=== PATIENT | female | born 1960 | race Caucasian/White ===

== ENCOUNTER 2020-10-14 11:03 | Outpatient (REF) | payer OTHER, MEDICAID, SELFPAY ==
[2020-10-14 14:24] LABS: Basophils Absolute Auto 0.1 X10*3/uL (0.0-0.2); Basophils Percent Auto 1.1 % (0-2); Lymphocytes Absolute Auto 2.9 X10*3/uL (1.2-4.9); MANUAL DIFF FLAG SCAN; Red Cell Distribution Width 13.4 % (11.0-16.0); SCAN SMEAR FLAG 1
[2020-10-14 14:26] LABS: Eosinophils Absolute Auto 0.4 X10*3/uL (0.0-0.4); Eosinophils Percent Auto 4.3 % (0-4); Hematocrit 47.9 % (37-47); Hemoglobin 15.5 g/dl (12.0-16.0); Imm Gran Abs Auto 0.01 X10*3/uL (0.00-0.03); Imm Gran Pct Auto 0.1 % (0.0-0.4); Lymphocytes Percent Auto 35.5 % (20-40); Mean Corpuscular HGB Conc 32.4 g/dl (31.0-35.0); Mean Corpuscular Hemoglobin 29.5 pg (27.0-33.0); Mean Corpuscular Volume 91.2 fL (80-98); Monocytes Absolute Auto 0.7 X10*3/uL (0.1-1.2); Monocytes Percent Auto 8.3 % (2-11); Neutrophils Absolute Auto 4.2 X10*3/uL (2.0-8.3); Neutrophils Percent Auto 50.7 % (45-73); Platelet Count 179 X10*3/uL (160-400); Red Blood Count 5.25 X10*6/uL (4.20-5.50); White Blood Count 8.2 X10*3/uL (4.8-10.8)
[2020-10-14 14:28] LABS: Alanine Aminotransferase 33 U/L (0-31); Anion Gap 14 (12-20); Aspartate Amino Transferase 29 U/L (5-31); Blood Urea Nitrogen 20 mg/dL (9-16); Calcium 9.5 mg/dL (8.4-10.2); Carbon Dioxide 28 mmol/L (22-29); Chloride 106 mmol/L (96-108); Cholesterol 181 mg/dL; Estimated Glomerular Filt Rate > 60; Glucose Fasting 91 mg/dL (60-99); HDL Cholesterol 43 mg/dL; LDL Cholesterol Calculated 103 mg/dl; Sodium 144 mmol/L (135-145); Triglycerides 179 mg/dL
[2020-10-14 14:34] LABS: PLT ABN DIST 1
[2020-10-14 14:51] LABS: TSH reflex Free T4 0.56 uIU/mL (0.32-4.0); Vitamin D 25-OH Total 42.6 ng/mL (>30)
[2020-10-14 15:02] LABS: SLIDE REVIEW VERIFIED
== END 2020-10-14 11:04 | disposition home or self-care (01) ==
LOC: HO.HMGCLDS 11:03
PROVIDERS: PCP Internal Medicine; Visit Provider Internal Medicine
DX: Z00.01 Encounter for general adult medical examination with abnormal findings (principal); E78.1 Pure hyperglyceridemia; I10 Essential (primary) hypertension; R73.01 Impaired fasting glucose; Z78.0 Asymptomatic menopausal state
CPT/HCPCS: 36415; 80048; 80061; 82306; 84443; 84450; 84460; 85025

== ENCOUNTER 2021-05-16 06:38 | Outpatient (REF) | payer OTHER, MEDICAID, SELFPAY ==
[2021-05-16 12:02] LABS: Estimated Average Glucose 100 mg/dL; Hemoglobin A1c % 5.1 %
[2021-05-16 12:10] LABS: Alanine Aminotransferase 22 U/L (0-31); Aspartate Amino Transferase 25 U/L (5-31); Cholesterol 195 mg/dL; Glucose Fasting 90 mg/dL (60-99); HDL Cholesterol 39 mg/dL; LDL Cholesterol Calculated 125 mg/dl; Triglycerides 157 mg/dL
[2021-05-16 12:24] LABS: Vitamin D 25-OH Total 44.3 ng/mL (>30)
== END 2021-05-16 06:39 | disposition home or self-care (01) ==
LOC: HO.HMGCLDS 06:38
PROVIDERS: PCP Internal Medicine; Visit Provider Internal Medicine
DX: E87.1 Hypo-osmolality and hyponatremia (principal); R73.01 Impaired fasting glucose; Z78.0 Asymptomatic menopausal state
CPT/HCPCS: 36415; 80061; 82306; 82947; 83036; 84450; 84460

== ENCOUNTER 2021-11-05 13:51 | Outpatient (REF) | payer OTHER, MEDICAID, SELFPAY ==
[2021-11-05 16:54] LABS: Alanine Aminotransferase 25 U/L (0-31); Anion Gap 13 (12-20); Aspartate Amino Transferase 28 U/L (5-31); Blood Urea Nitrogen 16 mg/dL (9-16); Carbon Dioxide 25 mmol/L (22-29); Chloride 105 mmol/L (96-108); Cholesterol 200 mg/dL; Estimated Glomerular Filt Rate 52; Glucose Fasting 92 mg/dL (60-99); HDL Cholesterol 43 mg/dL; LDL Cholesterol Calculated 131 mg/dl; Sodium 139 mmol/L (135-145); Triglycerides 131 mg/dL
[2021-11-05 17:14] LABS: Vitamin D 25-OH Total 39.2 ng/mL (>30)
== END 2021-11-05 13:52 | disposition home or self-care (01) ==
LOC: HO.HMGCLDS 13:51
PROVIDERS: PCP Internal Medicine; Visit Provider Internal Medicine
DX: Z00.01 Encounter for general adult medical examination with abnormal findings (principal); E78.1 Pure hyperglyceridemia; F41.1 Generalized anxiety disorder; I10 Essential (primary) hypertension; J45.20 Mild intermittent asthma, uncomplicated; N95.1 Menopausal and female climacteric states
CPT/HCPCS: 36415; 80048; 80061; 82306; 84450; 84460

== ENCOUNTER 2022-04-30 12:34 | Outpatient (REF) | payer OTHER, MEDICAID, SELFPAY ==
[2022-04-30 13:02] LABS: Binax Internal Control QC Valid; Binax Now Covid-19 Ag Negative (Negative)
== END 2022-04-30 12:35 | disposition home or self-care (01) ==
LOC: HO.HMGCLDS 12:34
PROVIDERS: PCP Internal Medicine
DX: Z20.822 Contact with and (suspected) exposure to COVID-19 (principal); J06.9 Acute upper respiratory infection, unspecified
CPT/HCPCS: 87811; C9803

== ENCOUNTER 2022-11-11 13:47 | Outpatient (AMB) | payer OTHER, MEDICAID, SELFPAY ==
--- NOTE | 2022-11-11 14:06 | A.OFFPC_ITS ---
<Statement entered by Darlene Roca MD - 10/17/24 15:15> This note has been administratively?closed. Vital Signs 11/11/22 14:14 Height 5 ft 6 in Weight 161 lb BMI 26.0 BP 152/90 H Blood Pressure Location Rt brachial Position Sitting Pulse 77 Pulse Source Pulse Oximeter Pulse Oximetry (%) 97 Oxygen Delivery Method Room Air Intake Visit Reasons: PE Intake Note: Pt is here today for her PE Allergies barium sulfate Adverse Reaction (Unknown, Verified 11/11/22 14:46) nightmares Medication List - Last Reconciled 11/11/22 by Darlene Roca MD albuterol sulfate 90 mcg/actuation 2 puffs PO Q4H PRN amlodipine 5 mg PO DAILY 30 days tccvezp-xuknndrpinyij-rspllwoz 250-250-65 mg (Excedrin Migraine) 1 tab PO Q6H PRN doxepin 10 mg PO BEDTIME fluoxetine 40 mg (2 x 20 mg) PO QAM propranolol ER 120 mg PO DAILY Tobacco use date assessed: 11/11/22 HPI PE HPI Details 62-year-old lady here today for her physical exam. She has hypertension currently on amlodipine 5 mg daily, previously was on propranolol ER for migraine prevention, but ran out of her medication. Complains of recurrent joint pain mainly in her extremities, has been taking ibuprofen which only helps temporarily. Currently on fluoxetine for her anxiety disorder Has mild intermittent asthma, currently using albuterol as needed, continues to smoke cigarettes with no desire to quit at present time PFSH Medical History Anxiety disorder DCIS (ductal carcinoma in situ) Hearing impaired History of ductal carcinoma in situ (DCIS) of breast HTN (hypertension) Hydronephrosis determined by ultrasound Hypertriglyceridemia Impaired fasting glucose Lumbago Mild intermittent asthma in adult without complication Polyarthralgia Pruritic intertrigo Smoker unmotivated to quit Surgical History History of breast implant History of breast reconstruction History of mammogram History of mastectomy Hx of colonoscopy Family History Father No problems noted. Mother Diabetes mellitus HTN (hypertension) Sister Insulin dependent diabetes mellitus HTN (hypertension) Brother Diabetes mellitus Maternal Grandfather No problems noted. Maternal Grandmother No problems noted. Paternal Grandfather No problems noted. Paternal Grandmother No problems noted. Daughter No problems noted. Daughter No problems noted. Social History Housing: House Patient Tobacco Use Status: Current everyday Tobacco user Tobacco use type: Cigarette Cigarettes Per Day: 5 e-Cigarette/Vaping Use: Never Used Current occupational status: unemployed Cognitive needs: No Hearing needs: No Vision needs: Yes Questionnaire PHQ-9 Over the last 2 weeks, how often have you been bothered by any of the following problems? 1. Little interest or pleasure in doing things: not at all 2. Feeling down, depressed, or hopeless: not at all 3. Trouble falling or staying asleep, or sleeping too much: several days 4. Feeling tired or having little energy: several days 5. Poor appetite or overeating: several days 6. Feeling bad about yourself - or that you are a failure or have let yourself or your family down: not at all 7. Trouble concentrating on things, such as reading the newspaper or watching television: not at all 8. Moving or speaking so slowly that other people could have noticed. Or the opposite - being so fidgety or restless that you have been moving around a lot more than usual: not at all 9. Thoughts that you would be better off or of hurting yourself in some way: not at all Total score: 3 Depression Screening Interpretation: Positive Depression Screening Follow-up: Existing condition, In treatment and Community Mental Health Worker F/U 77132 - PHQ-9 Billing: Yes Source: Developed by Drs. Franki Foster, Diann Contreras, Olivier Salmeron and colleagues, with an educational mitch from [employer]. Thrive Questionnaire Date Thrive assessed: 11/11/22 I am a: Patient What is your living situation today?: I have a steady place to live Within the past 12 months, did the food you bought not last and you didn't have the money to get more?: Never true Within the past 12 months, did you worry whether your food would run out before you got money to buy more?: Never true Do you have trouble paying for medicines?: No Do you have trouble getting transportation to medical appointments?: No Do you have trouble paying your heating and electricity bill?: No Do you have trouble taking care of your child, family member or friend?: No Do you have trouble with day-to-day activities such as bathing, preparing meals, shopping, managing finances, etc.?: No Are you currently unemployed and looking for a job?: No Are you interested in more education?: No AUDIT C Alcohol Use Questionnaire (AUDIT-C) 1. How often do you have a drink containing alcohol?: Never Total Score: 0 KARENA-7 AMB Questionnaire KARENA-7 Date KARENA - 7 assessed: 11/11/22 Feeling nervous, anxious, or on edge: 1 = Several days Not being able to stop or control worryin = Several days Worrying too much about different things: 1 = Several days Trouble relaxin = Not at all Being so restless that it is hard to sit still: 0 = Not at all Becoming easily annoyed or irritable: 1 = Several days Feeling afraid as if something awful might happen: 0 = Not at all Total KARENA-7 score (0-4 normal; 5-9 mild; 10-14 moderate; 15-21 severe): 4 Source: Developed by Drs. Franki Foster, Diann Contreras, Olivier Salmeron and colleagues, with an educational mitch from [employer]. KARENA-7 Assessment Billing KARENA-7 Assessment Tool: KARENA-7 Assessment 53095 Review of Systems Const Denies fever(s), Denies headache(s) and Denies weakness Eyes Details: [facility] Reports blurry vision, Denies diplopia, Denies eye discharge, Denies dry eyes, Denies itchy eyes and Reports requires corrective lenses ENT Denies dizziness, Denies headache(s), Denies nasal congestion, Denies nasal discharge and Denies sore throat Card Denies chest pain, Denies lightheadedness, Denies palpitations and Denies dyspnea Resp Denies chest congestion, Denies cough, Denies dyspnea and Denies wheezing GI Denies abdominal pain, Denies change in bowel habits and Denies heartburn Denies hematuria, Denies urinary frequency, Denies dysuria and Denies urinary urgency Musc Details: Complaining of pain and stiffness in fingers, and knees, intermittent Skin/Breast Denies breast pain, Denies breast mass, Denies lesions and Denies rash Neuro Denies dizziness, Denies headache(s) and Denies weakness Psych Reports no additional complaints Endo Denies polydipsia, Denies polyuria and Denies palpitations [place]/Lymph Denies easy bruising Aller/Immun Denies itchy eyes, Denies seasonal rhinorrhea and Denies wheezing Physical exam (Primary Care) Vital Signs: Last Vital Signs Pulse 77 11/11/22 14:14 BP 152/90 H 11/11/22 14:14 Pulse Ox 97 11/11/22 14:14 Oxygen Delivery Method Room Air 11/11/22 14:14 BMI result Body Mass Index 26.0 Tobacco/Smoking Status: Tobacco use Status Tobacco use date assessed 11/11/22 11/11/22 14:07 Patient Tobacco Use Status Current everyday Tobacco 11/11/22 14:07 Tobacco use type Cigarette 11/11/22 14:07 e-Cigarette/Vaping Use Never Used 11/11/22 14:07 PHQ-9: PHQ-9 Score PHQ-9: Total score 12 11/11/22 15:03 Depression Screening Interpretation: Positive Depression Screening Follow-up: Existing condition, In treatment and Community Mental Health Worker F/U Thrive Assessment: Date of Thrive Assessment Date Thrive assessed 11/11/22 11/11/22 14:23 Const General: comfortable, no acute distress and alert Orientation/consciousness: patient oriented x3 Limitations: no limitations HENMT Ears: external ears normal, TM's normal bilaterally and EAC's normal General nose exam: Normal external nose present Mouth: oropharynx normal and moist mucous membranes Eyes General: appearance normal, both eyes and all related structures Conjunctivae: conjunctivae normal Sclerae: sclerae normal Pupils: Equal, round and reactive pupils present EOM: EOMs intact bilaterally Neck Neck: Yes full ROM, Yes no lymphadenopathy and Yes supple Chest Breast/axilla palpation: normal palpation of the breasts Resp Effort & Inspection: normal respiratory effort and able to speak in complete sentences Auscultation: clear to auscultation bilaterally Cardio Rate: regular rate Rhythm: regular rhythm Heart sounds: S1 normal heart sound present and S2 normal heart sound present GI Palpation (GI): Soft to palpation, nontender and no masses Auscultation: normal bowel sounds Other: Done, currently sees Dr. Nguyễn Back/Spine/Pelvis Back: No back tenderness Skin General skin exam: no rashes or lesions noted Neuro General: patient oriented x3, gait normal, tone normal, moves all extremities, Normal light touch and pain sensation and no focal motor deficits Cranial nerves: Yes CN's II-XII intact bilaterally and Yes Equal, round and reactive pupils present Cognition (Neuro): normal cognition Extrem General: Yes full ROM, Yes no joint enlargement, Yes no clubbing, cyanosis or edema and Yes no calf tenderness Psych Appearance: grossly normal and well kempt Mental Status: mental status grossly normal Speech and movement: Normal speech and movement present Affect: normal affect Attitude: cooperative Thought process: Normal thought process present Assessment and Plan Assessment & Plan (1) Annual visit for general adult medical examination with abnormal findings: Code(s): Z00.01 - Encounter for general adult medical examination with abnormal findings Plan: Will check appropriate labs. Recommended dental visit every 6 months and is up-to-date with her regular eye exams. Take adequate calcium in diet and vitamin-D 3 at 2000 IU per cap once a day, in addition to weight-bearing exercises to help maintain good muscle tone and weight control. Instructed to do self-breast exam, and continue with yearly mammogram currently up-to-date. She sees Dr. Nguyễn for her routine Pap and pelvic exam, last done in 2020. She is up-to-date with her screening colonoscopy done in 2014, done by Dr. Rosado is due again in 2024. Reminded to get her COVID booster and her shingles vaccine, up-to-date with pneumococcal vaccine and Tdap and gets yearly flu shot (2) HTN (hypertension): Code(s): I10 - Essential (primary) hypertension Qualifiers: Hypertension type: essential hypertension Qualified Code(s): I10 - Essential (primary) hypertension Plan: Blood pressure today elevated. Blood pressure goal is less than 130/80. Continue with amlodipine, and restarted back on propranolol XR 120 mg 1 tablet daily at night, which also is given to help for migraine prevention. Reinforced importance of following a low sodium diet, getting regular exercise, and lowering stress levels. Continue cutting back on her smoking, now down to 7 cigarettes a day (3) Migraine: Code(s): G43.909 - Migraine, unspecified, not intractable, without status migrainosus Qualifiers: Intractability: not intractable Migraine type: without aura Status migrainosus presence: without status migrainosus Qualified Code(s): G43.009 - Migraine without aura, not intractable, without status migrainosus Plan: Has been out of her propranolol, refill sent. (4) Mild intermittent asthma in adult without complication: Code(s): J45.20 - Mild intermittent asthma, uncomplicated Plan: Continue with cutting back on her smoking, now down to 7 cigarettes a day. Refill sent for her albuterol inhaler and benzonatate capsules to be taken as needed for cough (5) Impaired fasting glucose: Code(s): R73.01 - Impaired fasting glucose Plan: Your fasting blood sugars elevated above 100 mg/dL. Impaired glucose metabolism O2 at risk for developing diabetes mellitus type 2, as well as heart attack and stroke later on. Lifestyle changes at just weight loss, healthy eating habits, and regular exercise are important, and can prevent the progression to diabetes (6) Polyarthralgia: Code(s): M25.50 - Pain in unspecified joint Plan: Continue ibuprofen, prescription sent for never nabumetone 500 mg to take 1 tablet twice a day only as needed for joint pains. Patient reminded to take it with food Orders: Orders Alanine Aminotransferase 11/11/22 I10 - Essential (primary) hypertension, G43.909 - Migraine, unspecified, not intractable, without status migrainosus, J45.20 - Mild intermittent asthma, uncomplicated, R73.01 - Impaired fasting glucose, Z86.000 - Personal history of in-situ neoplasm of breast, M25.50 - Pain in unspecified joint, Z00.01 - Encounter for general adult medical examination with abnormal findings Aspartate Amino Transferase 11/11/22 I10 - Essential (primary) hypertension, G43.909 - Migraine, unspecified, not intractable, without status migrainosus, J45.20 - Mild intermittent asthma, uncomplicated, R73.01 - Impaired fasting glucose, Z86.000 - Personal history of in-situ neoplasm of breast, M25.50 - Pain in unspecified joint, Z00.01 - Encounter for general adult medical examination with abnormal findings Basic Metabolic Panel Fasting 11/11/22 I10 - Essential (primary) hypertension, G43.909 - Migraine, unspecified, not intractable, without status migrainosus, J45.20 - Mild intermittent asthma, uncomplicated, R73.01 - Impaired fasting glucose, Z86.000 - Personal history of in-situ neoplasm of breast, M25.50 - Pain in unspecified joint, Z00.01 - Encounter for general adult medical examination with abnormal findings Lipid Panel 11/11/22 I10 - Essential (primary) hypertension, G43.909 - Migraine, unspecified, not intractable, without status migrainosus, J45.20 - Mild intermittent asthma, uncomplicated, R73.01 - Impaired fasting glucose, Z86.000 - Personal history of in-situ neoplasm of breast, M25.50 - Pain in unspecified joint, Z00.01 - Encounter for general adult medical examination with abnormal findings Vitamin D 25-OH Total 11/11/22 I10 - Essential (primary) hypertension, G43.909 - Migraine, unspecified, not intractable, without status migrainosus, J45.20 - Mild intermittent asthma, uncomplicated, R73.01 - Impaired fasting glucose, Z86.000 - Personal history of in-situ neoplasm of breast, M25.50 - Pain in unspecified joint, Z00.01 - Encounter for general adult medical examination with abnormal findings Hemoglobin A1c 11/11/22 R73.01 - Impaired fasting glucose Medications: New benzonatate 200 mg PO BID PRN 20 caps 0RF cough nabumetone 500 mg PO BID PRN 60 tabs 0RF joint pain Changed From albuterol sulfate 90 mcg/actuation 2 puffs PO Q4H PRN 8.5 grams 3RF bronchospasm To albuterol sulfate 90 mcg/actuation 2 puffs PO Q4H PRN 8.5 grams 3RF bronchospasm Refilled propranolol ER 120 mg PO DAILY 90 caps 1RF I10 - Essential (primary) hypertension, G43.009 - Migraine without aura, not intractable, without status migrainosus Coding Level of Care Code Est Pt Prev Care 40-64y(54304) Diagnoses Annual visit for general adult medical examination with abnormal findings Z00. HTN (hypertension) I10 Hypertension type: essential hypertension Migraine G43.009 Intractability: not intractable Migraine type: without aura Status migrainosus presence: without status migrainosus Mild intermittent asthma in adult without complication J45.20 Impaired fasting glucose R73.01 Polyarthralgia M25.50 Additional Codes KARENA-7 Assessment Billing - KARENA-7 Assessment Tool: KARENA-7 Assessment [id number] ([id number])
[2022-11-11 14:14] VITALS: BP 152/90; PULSE 77; O2SAT 97; BMI 26.0
== END 2022-11-11 15:32 | disposition home or self-care (01) ==
PROVIDERS: PCP Internal Medicine; Visit Provider Internal Medicine
DX: Z00.01 Encounter for general adult medical examination with abnormal findings (principal); I10 Essential (primary) hypertension; G43.009 Migraine without aura, not intractable, without status migrainosus; J45.20 Mild intermittent asthma, uncomplicated; R73.01 Impaired fasting glucose; M25.50 Pain in unspecified joint
CPT/HCPCS: 99499

== ENCOUNTER 2022-11-11 15:07 | Outpatient (REF) | payer OTHER, MEDICAID, SELFPAY ==
[2022-11-11 17:03] LABS: Estimated Average Glucose 100 mg/dL; Hemoglobin A1c % 5.1 %
[2022-11-11 17:15] LABS: Alanine Aminotransferase 38 U/L (0-31); Anion Gap 15 (12-20); Aspartate Amino Transferase 34 U/L (5-31); Blood Urea Nitrogen 13 mg/dL (9-16); Calcium 10.2 mg/dL (8.4-10.2); Carbon Dioxide 28 mmol/L (22-29); Chloride 102 mmol/L (96-108); Cholesterol 215 mg/dL; Estimated Glomerular Filt Rate 52; Glucose Fasting 83 mg/dL (60-99); HDL Cholesterol 42 mg/dL; LDL Cholesterol Calculated 134 mg/dl; Potassium 4.2 mmol/L (3.3-5.1); Sodium 141 mmol/L (135-145); Triglycerides 198 mg/dL
== END 2022-11-11 15:08 | disposition home or self-care (01) ==
LOC: HO.HMGCLDS 15:07
PROVIDERS: PCP Internal Medicine; Visit Provider Internal Medicine
DX: Z00.01 Encounter for general adult medical examination with abnormal findings (principal); G43.909 Migraine, unspecified, not intractable, without status migrainosus; I10 Essential (primary) hypertension; J45.20 Mild intermittent asthma, uncomplicated; M25.50 Pain in unspecified joint; R73.01 Impaired fasting glucose; Z86.000 Personal history of in-situ neoplasm of breast
CPT/HCPCS: 36415; 80048; 80061; 82306; 83036; 84450; 84460

== ENCOUNTER 2023-03-01 11:24 | Outpatient (AMB) | payer OTHER, MEDICAID, SELFPAY ==
--- NOTE | 2023-03-01 12:49 | AM.OFFWIN_ITS ---
Intake Vital Signs 03/01/23 12:51 Weight 160 lb BP 130/80 Blood Pressure Location Lt brachial Position Sitting Pulse 92 Pulse Source Pulse Oximeter Temp 98.1 F Temp Source Oral Pulse Oximetry (%) 95 Oxygen Delivery Method Room Air Oxygen Flow Rate 98.1 Intake Visit Reasons: EST/body aches and coughing/[phone] Intake Note: Patient here for bodyaches, headaches, coughing, chills and SOB Patient Tobacco Use Status: Current everyday Tobacco user Allergies barium sulfate Adverse Reaction (Unknown, Verified 03/01/23 13:07) nightmares Medication List - Last Reconciled 03/01/23 by Gary Cárdenas MD albuterol sulfate 90 mcg/actuation 2 puffs PO Q4H PRN amlodipine 5 mg PO DAILY 30 days pgmqinx-rbcircszkgnpk-tdbnybyi 250-250-65 mg (Excedrin Migraine) 1 tab PO Q6H PRN benzonatate 200 mg PO BID PRN doxepin 10mg PO in AM, 25mg PO at bedtime orally 2 times a day; fluoxetine 40 mg (2 x 20 mg) PO QAM nabumetone 500 mg PO DAILY PRN propranolol ER 120 mg PO DAILY Do you need a note to return to daycare/school/sports/work: No HPI EST/body aches and coughing/[phone] HPI Details Patient presents for a sick visit. Reporting symptoms of sinus congestion, sore throat and difficulty swallowing. Low-grade fever. No family member is sick. No recent travel. Patient reports symptoms of malaise and fatigue. PFSH Medical History Anxiety disorder DCIS (ductal carcinoma in situ) Hearing impaired History of ductal carcinoma in situ (DCIS) of breast HTN (hypertension) Hydronephrosis determined by ultrasound Hypertriglyceridemia Impaired fasting glucose Lumbago Mild intermittent asthma in adult without complication Polyarthralgia Pruritic intertrigo Smoker unmotivated to quit Surgical History History of breast implant History of breast reconstruction History of mammogram History of mastectomy Hx of colonoscopy Family History Father No problems noted. Mother Diabetes mellitus HTN (hypertension) Sister Insulin dependent diabetes mellitus HTN (hypertension) Brother Diabetes mellitus Maternal Grandfather No problems noted. Maternal Grandmother No problems noted. Paternal Grandfather No problems noted. Paternal Grandmother No problems noted. Daughter No problems noted. Daughter No problems noted. Social History Housing: House Patient Tobacco Use Status: Current everyday Tobacco user Tobacco use type: Cigarette Cigarettes Per Day: 5 e-Cigarette/Vaping Use: Never Used Current occupational status: unemployed Cognitive needs: No Hearing needs: No Vision needs: Yes Physical Exam Vital Signs: Last Vital Signs Temp 98.1 F 03/01/23 12:51 Pulse 92 03/01/23 12:51 BP 130/80 03/01/23 12:51 Pulse Ox 95 03/01/23 12:51 Oxygen Delivery Method Room Air 03/01/23 12:51 Oxygen Flow Rate 98.1 03/01/23 12:51 Const General: cooperative and healthy appearing Nutritional Appearance: well nourished Orientation/consciousness: patient oriented x3 Limitations: no limitations HEENT Head: Yes normal to inspection Eyes General: appearance normal, both eyes and all related structures Neck Neck: Yes normal visual inspection Chest Chest palpation & inspection: normal palpation of entire chest wall Resp Other: Scattered wheezing. Neuro General: patient oriented x3 Office Procedures Nebulizer Treatment Nebulizer Treatment 13476-Ciosrabld/MDI RX initial, or Nebulizer Subsequent Treatment Office Meds albuterol sulfate 2.5 mg/3 mL (0.083 %) solution for nebulization Performing Provider: Gary Cárdenas MD Performing Location: [facility] Administered by: Oxana Gandara RN on 03/01/23 13:13 Dose Route Admin Location Dispensed Lot Number Expiration Date NDC Resident Care Technician 2.5 mg inhalation 3 mL [id number] 06/13/23 7360-5176-31 [facility] Assessment & Plan Assessment & Plan (1) Acute bronchitis: Code(s): J20.9 - Acute bronchitis, unspecified Plan: Nebulizer treatment given. Patient tolerated the procedure well. Chest x-ray was read by me. No infiltrate seen. Antibiotic, prednisone and albuterol called in. If symptoms do not improve to follow-up here. Orders: Orders AMB Nebulizer Treatment Today J20.9 - Acute bronchitis, unspecified XR chest 2V Today R05.9 - Cough, unspecified Coding Level of Care Code Est Pt Level 4 (25509) Diagnoses Acute bronchitis J20.9 CPT Codes Nebulizer Treatment - Nebulizer Treatment, initial or subsequent: 24150- Nebulizer/MDI RX initial, or Nebulizer Subsequent Treatment ([id number])
[2023-03-01 12:51] VITALS: BP 130/80; PULSE 92; TEMP 36.7; O2SAT 95
== END 2023-03-01 13:52 | disposition home or self-care (01) ==
PROVIDERS: PCP Internal Medicine; Visit Provider Internal Medicine
DX: J20.9 Acute bronchitis, unspecified (principal)
CPT/HCPCS: 94640; 99214; J7613

== ENCOUNTER 2023-03-01 13:23 | Outpatient (REF) | payer OTHER, MEDICAID, SELFPAY ==
--- NOTE | ~2023-03-01 | XR_ITS ---
EXAMINATION: XR CHEST CLINICAL INFORMATION: Cough, unspecified COMPARISON: Chest 06/05/2018, 04/07/2018 TECHNIQUE: 2 views of the chest were obtained. FINDINGS: There is evidence of prior breast surgery on the right side with surgical clips. Lungs are well expanded and clear. No focal consolidation. Trace atelectasis at the lung bases, as before the cardiomediastinal sweat is within normal limits. There are no pleural effusions. No acute osseous abnormality. XR/XR chest 2V IMPRESSION: No acute cardiopulmonary disease.
== END 2023-03-01 13:24 | disposition home or self-care (01) ==
LOC: HO.HMGCX 13:23
PROVIDERS: PCP Internal Medicine; Visit Provider Internal Medicine
DX: R05.9 Cough, unspecified (principal)
CPT/HCPCS: 71046

== ENCOUNTER 2023-03-14 13:05 | Outpatient (AMB) | payer OTHER, MEDICAID, SELFPAY ==
[2023-03-14 13:21] VITALS: BP 110/62; PULSE 71; O2SAT 95; BMI 26.8
--- NOTE | 2023-03-14 13:21 | MHC.PC.OV ---
Vital Signs 03/14/23 13:21 Height 5 ft 6 in Weight 166 lb BMI 26.8 BP 110/62 Blood Pressure Location Lt brachial Position Sitting Pulse 71 Pulse Source Pulse Oximeter Pulse Oximetry (%) 95 Oxygen Delivery Method Room Air Intake Visit Reasons: 4m follow up bp Intake Note: patient is here today fro her 4 mo f/u bp Allergies barium sulfate Adverse Reaction (Unknown, Verified 03/14/23 23:48) nightmares Medication List - Last Reconciled 03/14/23 by Darlene Roca MD albuterol sulfate 90 mcg/actuation 2 puffs PO Q4H PRN amlodipine 5 mg PO DAILY 30 days craneau-zrajorqhmwalz-cjsvdwll 250-250-65 mg (Excedrin Migraine) 1 tab PO Q6H PRN benzonatate 200 mg PO BID PRN doxepin 10mg PO in AM, 25mg PO at bedtime orally 2 times a day; fluoxetine 40 mg (2 x 20 mg) PO QAM nabumetone 500 mg PO DAILY PRN propranolol ER 120 mg PO DAILY Tobacco use date assessed: 03/14/23 Dental Screening Dental Screen Date: 03/14/23 Did you have a dental visit in the last 12 months?: Yes Did you have a dental problem in the last 6 months where you did not have access to dental care?: No Was dental information given to patient?: Patient has dentist HPI 4m follow up bp HPI Details 62-year-old lady with hypertension, here today for follow-up. She is currently on amlodipine 5 mg once a day and propranolol ER 120 mg daily. She has been compliant with her diet, stays active, but continues to smoke cigarettes with no desire to quit at present time, but has been cutting back on her cigarette use, now down to at least 2-3 cigarettes a day.. Complains of a dry recurrent cough which has been present now for the last several weeks. Has been using her albuterol inhaler at least 2 to 3 times a week as needed for episodes of bronchospasm. [facility] Medical History (Updated 03/14/23 @ 23:45 by Darlene Roca MD) Recurrent cough History of ductal carcinoma in situ (DCIS) of breast Polyarthralgia Hydronephrosis determined by ultrasound Lumbago Hypertriglyceridemia Pruritic intertrigo Impaired fasting glucose Smoker unmotivated to quit Mild intermittent asthma in adult without complication DCIS (ductal carcinoma in situ) Anxiety disorder Hearing impaired HTN (hypertension) Surgical History Hx of colonoscopy History of mammogram History of breast reconstruction History of breast implant History of mastectomy Family History Father No problems noted. Mother Diabetes mellitus HTN (hypertension) Sister Insulin dependent diabetes mellitus HTN (hypertension) Brother Diabetes mellitus Maternal Grandfather No problems noted. Maternal Grandmother No problems noted. Paternal Grandfather No problems noted. Paternal Grandmother No problems noted. Daughter No problems noted. Daughter No problems noted. Social History Housing: House Patient Tobacco Use Status: Current everyday Tobacco user Tobacco use type: Cigarette Cigarettes Per Day: 5 e-Cigarette/Vaping Use: Never Used Current occupational status: unemployed Cognitive needs: No Hearing needs: No Vision needs: Yes Questionnaire Thrive Questionnaire Date Thrive assessed: 11/11/22 AUDIT C Alcohol Use Questionnaire (AUDIT-C) 1. How often do you have a drink containing alcohol?: Monthly or less 2. How many drinks containing alcohol do you have on a typical day when you are drinking?: 1 or 2 Total Score: 1 KARENA-7 AMB Questionnaire KARENA-7 Date KARENA - 7 assessed: 11/11/22 Source: Developed by Drs. Franki Foster, Dainn Contreras, Olivier Salmeron and colleagues, with an educational mitch from [employer]. Review of Systems Const Denies fever(s) and Denies headache(s) Eyes Details: sees [facility] Reports blurry vision and Reports requires corrective lenses ENT Denies dizziness, Denies headache(s), Denies nasal congestion, Denies nasal discharge and Denies sore throat Card Denies chest pain, Denies lightheadedness and Denies dyspnea Resp Denies chest congestion, Denies cough, Denies dyspnea and Denies wheezing GI Denies abdominal pain, Denies change in bowel habits and Denies heartburn Musc Reports arthralgias and Reports stiffness Neuro Denies dizziness and Denies headache(s) Aller/Immun Denies seasonal rhinorrhea and Denies wheezing Physical exam (Primary Care) Vital Signs: Last Vital Signs Pulse 71 03/14/23 13:21 BP 110/62 03/14/23 13:21 Pulse Ox 95 03/14/23 13:21 Oxygen Delivery Method Room Air 03/14/23 13:21 BMI result Body Mass Index 26.8 Tobacco/Smoking Status: Tobacco use Status Tobacco use date assessed 03/14/23 03/14/23 13:28 Patient Tobacco Use Status Current everyday Tobacco 03/14/23 13:28 Tobacco use type Cigarette 03/14/23 13:28 e-Cigarette/Vaping Use Never Used 03/14/23 13:28 Thrive Assessment: Date of Thrive Assessment Date Thrive assessed 11/11/22 03/14/23 13:28 Const General: comfortable, no acute distress and alert Orientation/consciousness: patient oriented x3 HENMT Ears: external ears normal, TM's normal bilaterally and EAC's normal General nose exam: Normal external nose present Mouth: oropharynx normal and moist mucous membranes Eyes General: appearance normal, both eyes and all related structures Neck Neck: Yes full ROM, Yes no lymphadenopathy and Yes supple Chest Breast/axilla palpation: normal palpation of the breasts Resp Effort & Inspection: normal respiratory effort and able to speak in complete sentences Auscultation: clear to auscultation bilaterally Cardio Rate: regular rate Rhythm: regular rhythm Heart sounds: S1 normal heart sound present and S2 normal heart sound present GI Palpation (GI): Soft to palpation, nontender and no masses Auscultation: normal bowel sounds Other: Done, currently sees Dr. Nguyễn Back/Spine/Pelvis Back: No back tenderness Skin General skin exam: no rashes or lesions noted Neuro General: patient oriented x3, gait normal, tone normal, moves all extremities, Normal light touch and pain sensation and no focal motor deficits Cranial nerves: Yes CN's II-XII intact bilaterally Cognition (Neuro): normal cognition Extrem General: Yes full ROM, Yes no joint enlargement, Yes no clubbing, cyanosis or edema and Yes no calf tenderness Assessment and Plan Assessment & Plan (1) Smoker unmotivated to quit: Code(s): F17.200 - Nicotine dependence, unspecified, uncomplicated Plan: Patient strongly advised to stop smoking, as smoking damages blood vessels, degenerative of joints and spine, damage to lungs and heart., predisposes to developing certain cancers like lung, breast, bladder, colon. Recommended to try decreasing cigarette use by 1-2 cigarettes a day. Advised to monitor what triggers are for smoking so that this can be discussed on the next office visit. We can discuss different options to quit smoking when ready. (2) Recurrent cough: Code(s): R05.8 - Other specified cough Plan: Again patient advised to quit smoking, ordered a pulmonary function testing with methacholine challenge. Currently using albuterol inhaler as needed and has been taking benzonatate capsules as needed for cough (3) HTN (hypertension): Code(s): I10 - Essential (primary) hypertension Qualifiers: Hypertension type: essential hypertension Qualified Code(s): I10 - Essential (primary) hypertension Plan: Blood pressure at goal of less than 130/80. Continue with current medication. Reinforced importance of following a low sodium diet, getting regular exercise, and lowering stress levels. (4) Polyarthralgia: Code(s): M25.50 - Pain in unspecified joint Plan: Prescription sent for nabumetone 500 mg per tablet to take 1 tablet once or twice a day as needed for joint pain stiffness. Advised to take it with food at all times. And take it only as needed Orders: Orders PFT pulmonary function test Today F17.200 - Nicotine dependence, unspecified, uncomplicated, R05.8 - Other specified cough RT pft w methacholine Today F17.200 - Nicotine dependence, unspecified, uncomplicated, R05.8 - Other specified cough Medications: Refilled nabumetone 500 mg PO DAILY PRN 30 tabs 1RF joint pain propranolol ER 120 mg PO DAILY 90 caps 3RF G43.009 - Migraine without aura, not intractable, without status migrainosus, I10 - Essential (primary) hypertension amlodipine 5 mg PO DAILY 30 days 90 tabs 3RF I10 - Essential (primary) hypertension Coding Level of Care Code Est Pt Level 3 (78397) Diagnoses Smoker unmotivated to quit F17.200 Recurrent cough R05.8 Essential hypertension I10 Hypertension type: essential hypertension Polyarthralgia M25.50
== END 2023-03-14 14:07 | disposition home or self-care (01) ==
PROVIDERS: PCP Internal Medicine; Visit Provider Internal Medicine
DX: I10 Essential (primary) hypertension (principal); R05.8 Other specified cough; F17.210 Nicotine dependence, cigarettes, uncomplicated; M25.50 Pain in unspecified joint; G43.909 Migraine, unspecified, not intractable, without status migrainosus
CPT/HCPCS: 99213

== ENCOUNTER 2023-04-21 12:21 | Outpatient (REF) | payer OTHER, MEDICAID, SELFPAY ==
--- NOTE | 2023-04-21 13:53 | PFT_ITS ---
Forced vital capacity is 66%, FEV1 83%. FEV1/FVC ratio is 99. AOD14-35 55% and MVV 43%. Post bronchodilator therapy. There is no significant change. Total lung capacity 91% and residual volume 121%. Diffusion capacity 47%. CONCLUSION: There is evidence of mild obstructive airway disorder. There is no significant response to bronchodilator therapy. Diffusion capacity is decreased out of proportion to the other findings. This may be due to technical problem or presence of pulmonary emphysema, nonobstructive, or technical issues. Clinical correlation is recommended. Ovidio Marinelli MD MSB/MODL / [id number]
== END 2023-04-21 12:22 | disposition home or self-care (01) ==
LOC: HO.RESP 12:21
PROVIDERS: PCP Internal Medicine; Visit Provider Internal Medicine
DX: R05.8 Other specified cough (principal); F17.200 Nicotine dependence, unspecified, uncomplicated
CPT/HCPCS: 94010; 94727; 94729

== ENCOUNTER → 2023-04-21 13:53 | Outpatient (BNV) | payer OTHER, MEDICAID, SELFPAY | PROVIDERS: PCP Internal Medicine; Visit Provider Internal Medicine | DX: R05.8 Other specified cough (principal); F17.210 Nicotine dependence, cigarettes, uncomplicated | CPT/HCPCS: 94060; 94727; 94729 ==

== ENCOUNTER 2023-08-11 11:27 | Outpatient (AMB) | payer OTHER, MEDICAID, SELFPAY ==
[2023-08-11 12:20] VITALS: BP 130/70; PULSE 86; O2SAT 98; BMI 27.1
--- NOTE | 2023-08-11 12:20 | AM.OFFWIN_ITS ---
Intake Vital Signs 08/11/23 12:20 Height 5 ft 6 in Weight 168 lb BMI 27.1 BP 130/70 Blood Pressure Location Lt brachial Position Sitting Pulse 86 Pulse Source Pulse Oximeter Pulse Oximetry (%) 98 Oxygen Delivery Method Room Air Intake Visit Reasons: EP RT ear ?infection [phone] Intake Note: Pt is here today for RT ear infection Patient Tobacco Use Status: Current everyday Tobacco user Allergies barium sulfate Adverse Reaction (Unknown, Verified 08/11/23 12:20) nightmares Do you need a note to return to daycare/school/sports/work: No HPI HPI Comments History of Present Illness Details 63 y/o female patient who presents to [facility] in clinic with c/o headaches ,right ear pain, chest congestion and dizziness. Denies any recent sick contacts. Denies fevers, chills, nausea or vomiting. H/O vertigo and has an upcoming ENT Appointment. [facility] Medical History (Updated 03/14/23 @ 23:45 by Darlene Roca MD) Recurrent cough History of ductal carcinoma in situ (DCIS) of breast Polyarthralgia Hydronephrosis determined by ultrasound Lumbago Hypertriglyceridemia Pruritic intertrigo Impaired fasting glucose Smoker unmotivated to quit Mild intermittent asthma in adult without complication DCIS (ductal carcinoma in situ) Anxiety disorder Hearing impaired HTN (hypertension) Surgical History Hx of colonoscopy History of mammogram History of breast reconstruction History of breast implant History of mastectomy Family History Father No problems noted. Mother Diabetes mellitus HTN (hypertension) Sister Insulin dependent diabetes mellitus HTN (hypertension) Brother Diabetes mellitus Maternal Grandfather No problems noted. Maternal Grandmother No problems noted. Paternal Grandfather No problems noted. Paternal Grandmother No problems noted. Daughter No problems noted. Daughter No problems noted. Social History Housing: House Patient Tobacco Use Status: Current everyday Tobacco user Tobacco use type: Cigarette Cigarettes Per Day: 5 e-Cigarette/Vaping Use: Never Used Current occupational status: unemployed Cognitive needs: No Hearing needs: No Vision needs: Yes Review of Systems Const All systems reviewed & are unremarkable except as noted in HPI and below Physical Exam Vital Signs: Last Vital Signs Pulse 86 08/11/23 12:20 BP 130/70 08/11/23 12:20 Pulse Ox 98 08/11/23 12:20 Oxygen Delivery Method Room Air 08/11/23 12:20 BMI result Body Mass Index 27.1 Const General: comfortable and no acute distress HEENT Head: Yes normocephalic Ears: external ears normal and TM's normal bilaterally General nose exam: Abnormal mucous membranes and turbinates present boggy and erythematous Face and sinus: Yes sinuses nontender Mouth: moist mucous membranes Throat: Yes posterior oropharynx normal Resp Effort & Inspection: normal respiratory effort, able to speak in complete sentences and Actively coughing Auscultation: clear to auscultation bilaterally, no crackles, no rales, no rhonchi and no wheezes Cardio Rate: regular rate Rhythm: regular rhythm Assessment & Plan Assessment & Plan (1) Dizziness: Code(s): R42 - Dizziness and giddiness Plan: - F/U with PCP -F/U with ENT - Hydrate well - Obtain enough sleep at night. (2) Generalized headaches: Code(s): R51.9 - Headache, unspecified Plan: - Acetaminophen for pain relief - Hydrate well - Obtain enough sleep at night Orders: Orders SARS-CoV2/FLU/RSV Today R42 - Dizziness and giddiness, R51.9 - Headache, unspecified Medications: New acetaminophen 1,000 mg (2 x 500 mg) PO Q6H PRN 30 caps 0RF headache R51.9 - Headache, unspecified meclizine (Dramamine (meclizine)) 25 mg PO BID PRN 30 tabs 0RF dizziness R42 - Dizziness and giddiness Coding Level of Care Code Est Pt Level 3 (47848) Diagnoses Dizziness R42 Generalized headaches R51.9 Time Spent (min) 15
== END 2023-08-11 13:16 | disposition home or self-care (01) ==
PROVIDERS: PCP Internal Medicine; Visit Provider Nurse Practitioner Family
DX: R42 Dizziness and giddiness (principal); R51.9 Headache, unspecified
CPT/HCPCS: 99213

== ENCOUNTER 2023-08-11 13:03 | Outpatient (REF) | payer OTHER, MEDICAID, SELFPAY ==
[2023-08-11 18:12] LABS: Influenza A PCR NEGATIVE (Negative); Influenza B PCR NEGATIVE (Negative); Resp Syncy Virus RNA Qual PCR NEGATIVE (Negative); SARS COV2 PCR INHOUSE NEGATIVE (Negative)
== END 2023-08-11 13:04 | disposition home or self-care (01) ==
LOC: HO.LAB 13:03
PROVIDERS: Visit Provider Nurse Practitioner Family
DX: R42 Dizziness and giddiness (principal); R51.9 Headache, unspecified; Z11.52 Encounter for screening for COVID-19; Z20.828 Contact with and (suspected) exposure to other viral communicable diseases
CPT/HCPCS: 0241U

== ENCOUNTER 2023-11-16 08:40 | Outpatient (AMB) | payer OTHER, MEDICAID, SELFPAY ==
[2023-11-16 09:21] VITALS: BP 102/60; PULSE 73; O2SAT 93; BMI 27.0
--- NOTE | 2023-11-16 09:21 | A.OFFPC_ITS ---
Vital Signs 11/16/23 09:21 Height 5 ft 6 in Weight 167 lb BMI 27.0 BP 102/60 Blood Pressure Location Lt brachial Position Sitting Pulse 73 Pulse Source Pulse Oximeter Pulse Oximetry (%) 93 Oxygen Delivery Method Room Air Intake Visit Reasons: PE Intake Note: Pt is here today for her PE: Last mammogram 02/04/23, colonoscopy 12/02/14 Allergies barium sulfate Adverse Reaction (Unknown, Verified 02/29/24 09:43) nightmares Medication List - Last Reconciled 11/16/23 by Darlene Roca MD acetaminophen 1,000 mg (2 x 500 mg) PO Q6H PRN albuterol sulfate 90 mcg/actuation 2 puffs PO Q4H PRN amlodipine 5 mg PO DAILY 30 days dovtegt-xbaqoolqxolph-qnuqyoet 250-250-65 mg (Excedrin Migraine) 1 tab PO Q6H PRN doxepin 10mg PO in AM, 25mg PO at bedtime orally 2 times a day; fluoxetine 40 mg (2 x 20 mg) PO QAM meclizine (Dramamine (meclizine)) 25 mg PO BID PRN nabumetone 500 mg PO DAILY PRN propranolol ER 120 mg PO DAILY Tobacco use date assessed: 11/16/23 Dental Screening Dental Screen Date: 11/16/23 HPI PE HPI Details 63-year-old lady with past medical histo ry significant for history of ductal carcinoma in Situ depressed, impaired fasting glucose, migraine, anxiety disorder, hypertension, hearing impaired, mild intermittent asthma, active smoker, here today for physical exam. She is up-to-date with her screening mammogram, due again later this year has already an appointment. Her last colonoscopy was done 12/02/[address] Santana 6 which only showed presence of internal hemorrhoids, repeat due again in 2024. She states that she is seeing Dr. Nguyễn for her routine Pap and pelvic exam. Results unavailable to me at this time [facility] Medical History History of ductal carcinoma in situ (DCIS) of breast Recurrent cough Polyarthralgia Hydronephrosis determined by ultrasound Lumbago Hypertriglyceridemia Pruritic intertrigo Impaired fasting glucose Smoker unmotivated to quit Mild intermittent asthma in adult without complication DCIS (ductal carcinoma in situ) Anxiety disorder Hearing impaired HTN (hypertension) Surgical History Hx of colonoscopy History of mammogram History of breast reconstruction History of breast implant History of mastectomy Family History Father No problems noted. Mother Diabetes mellitus HTN (hypertension) Sister Insulin dependent diabetes mellitus HTN (hypertension) Brother Diabetes mellitus Maternal Grandfather No problems noted. Maternal Grandmother No problems noted. Paternal Grandfather No problems noted. Paternal Grandmother No problems noted. Daughter No problems noted. Daughter No problems noted. Social History Housing: House Patient Tobacco Use Status: Current everyday Tobacco user Tobacco use type: Cigarette Cigarettes Per Day: 5 e-Cigarette/Vaping Use: Never Used Current occupational status: unemployed Cognitive needs: No Hearing needs: No Vision needs: Yes Female Reproductive History Menstrual Other: Sees Dr. Nguyễn for routine Pap and pelvic exam Questionnaire PHQ-9 Over the last 2 weeks, how often have you been bothered by any of the following problems? 1. Little interest or pleasure in doing things: not at all 2. Feeling down, depressed, or hopeless: not at all 3. Trouble falling or staying asleep, or sleeping too much: several days 4. Feeling tired or having little energy: several days 5. Poor appetite or overeating: several days 6. Feeling bad about yourself - or that you are a failure or have let yourself or your family down: several days 7. Trouble concentrating on things, such as reading the newspaper or watching television: several days 8. Moving or speaking so slowly that other people could have noticed. Or the opposite - being so fidgety or restless that you have been moving around a lot more than usual: not at all 9. Thoughts that you would be better off or of hurting yourself in some way: not at all Total score: 5 Depression Screening Interpretation: Negative (Existing condition, currently in treatment, controlled with fluoxetine) Depression Screening Done: Yes 58344 - PHQ-9 Billing: Yes Source: Developed by Drs. Franki Foster, Diann B.Olivier Martinez and colleagues, with an educational mitch from [employer]. Thrive Questionnaire Date Thrive assessed: 11/16/23 I am a: Patient What is your living situation today?: I have a steady place to live Within the past 12 months, did the food you bought not last and you didn't have the money to get more?: Often true Within the past 12 months, did you worry whether your food would run out before you got money to buy more?: Sometimes True Do you have trouble paying for medicines?: No Do you have trouble getting transportation to medical appointments?: No Do you have trouble paying your heating and electricity bill?: No Do you have trouble taking care of your child, family member or friend?: No Do you have trouble with day-to-day activities such as bathing, preparing meals, shopping, managing finances, etc.?: No Are you currently unemployed and looking for a job?: No Are you interested in more education?: No Please select the resources that you would like help with: Food THRIVE Score: 2 AUDIT C Alcohol Use Questionnaire (AUDIT-C) 1. How often do you have a drink containing alcohol?: Never 2. How many drinks containing alcohol do you have on a typical day when you are drinking?: 1 or 2 3. How often do you have six or more drinks on one occasion?: Never Total Score: 0 KARENA-7 AMB Questionnaire KARENA-7 Date KARENA - 7 assessed: 11/16/23 Feeling nervous, anxious, or on edge: 1 = Several days Not being able to stop or control worryin = Several days Worrying too much about different things: 2 = More than half the days Trouble relaxin = Several days Being so restless that it is hard to sit still: 1 = Several days Becoming easily annoyed or irritable: 1 = Several days Feeling afraid as if something awful might happen: 0 = Not at all Total KARENA-7 score (0-4 normal; 5-9 mild; 10-14 moderate; 15-21 severe): 7 Source: Developed by Drs. Franki Foster, Olivier Jiang and colleagues, with an educational mitch from [employer]. KARENA-7 Assessment Billing KARENA-7 Assessment Tool: KARENA-7 Assessment 51633 Review of Systems Const Reports no additional complaints Eyes Details: Up-to-date with eye exam, goes to [facility] Reports blurry vision and Reports requires corrective lenses ENT Details: Gets dental prophylaxis every 6 months Denies dizziness, Denies nasal congestion, Denies nasal discharge and Denies sore throat Card Denies chest pain, Denies lightheadedness and Denies dyspnea Resp Denies chest congestion, Denies cough, Denies dyspnea and Denies wheezing GI Denies abdominal pain, Denies change in bowel habits and Denies heartburn Reports no additional complaints Musc Reports arthralgias and Reports stiffness Skin/Breast Denies breast swelling, Denies breast pain and Denies breast mass Neuro Denies dizziness Psych Reports no additional complaints Endo Reports no additional complaints [place]/Lymph Reports no additional complaints Aller/Immun Denies seasonal rhinorrhea and Denies wheezing Physical exam (Primary Care) Vital Signs: Last Vital Signs Pulse 73 11/16/23 09:21 BP 102/60 11/16/23 09:21 Pulse Ox 93 11/16/23 09:21 Oxygen Delivery Method Room Air 11/16/23 09:21 BMI result Body Mass Index 27.0 Tobacco/Smoking Status: Tobacco use Status Tobacco use date assessed 11/16/23 11/16/23 09:24 Patient Tobacco Use Status Current everyday Tobacco 11/16/23 09:24 Tobacco use type Cigarette 11/16/23 09:24 e-Cigarette/Vaping Use Never Used 11/16/23 09:24 PHQ-9: PHQ-9 Score PHQ-9: Total score 5 11/16/23 10:05 Depression Screening Interpretation: Negative (Existing condition, currently in treatment, controlled with fluoxetine) Thrive Assessment: Date of Thrive Assessment Date Thrive assessed 11/16/23 11/16/23 09:28 Advance Care Planning discussion: Completed/Scanned Date of discussion: 11/16/23 Who was present: PATIENT Forms completed: MOLST Time spent: 16-45 minutes Actual minutes spent: 16 Const General: comfortable, no acute distress and alert Orientation/consciousness: patient oriented x3 HENMT Ears: external ears normal, TM's normal bilaterally and EAC's normal General nose exam: Normal external nose present Mouth: oropharynx normal and moist mucous membranes Eyes General: appearance normal, both eyes and all related structures Neck Neck: Yes full ROM, Yes no lymphadenopathy and Yes supple Chest Other: History of mastectomy right breast, status post breast reconstruction surgery, no mass or nipple discharge on left breast Resp Effort & Inspection: normal respiratory effort and able to speak in complete sentences Auscultation: clear to auscultation bilaterally Cardio Rate: regular rate Rhythm: regular rhythm Heart sounds: S1 normal heart sound present and S2 normal heart sound present GI Palpation (GI): Soft to palpation, nontender and no masses Auscultation: normal bowel sounds Other: Done, currently sees Dr. Nguyễn Back/Spine/Pelvis Back: No back tenderness Skin General skin exam: no rashes or lesions noted Neuro General: patient oriented x3, gait normal, tone normal, moves all extremities, Normal light touch and pain sensation and no focal motor deficits Cranial nerves: Yes CN's II-XII intact bilaterally Cognition (Neuro): normal cognition Extrem General: Yes full ROM, Yes no joint enlargement, Yes no clubbing, cyanosis or edema and Yes no calf tenderness Psych Appearance: grossly normal and well kempt Mental Status: mental status grossly normal Speech and movement: Normal speech and movement present Affect: normal affect Attitude: cooperative Thought process: Normal thought process present Thought content: Normal thought content present Coding Level of Care Code Est Pt Prev Care 40-64y(82632) Diagnoses Annual visit for general adult medical examination with abnormal findings Z00.01 Essential hypertension I10 Hypertension type: essential hypertension Generalized anxiety disorder F41.1 Anxiety disorder type: generalized anxiety disorder Migraine without aura and without status migrainosus, not intractable G43.009 Intractability: not intractable Migraine type: without aura Status migrainosus presence: without status migrainosus Mild intermittent asthma in adult without complication J45.20 Impaired fasting glucose R73.01 Hypertriglyceridemia E78.1 Advanced directives, counseling/discussion Z71.89 Additional Codes KARENA-7 Assessment Billing - KARENA-7 Assessment Tool: KARENA-7 Assessment 46689 ([id number]) Vital Signs *Quality* - Advance Care Planning discussion: Completed/Scanned ([id number]) Vital Signs *Quality* - Time spent: 16-45 minutes ([id number])
== END 2023-11-16 10:12 | disposition home or self-care (01) ==
PROVIDERS: PCP Internal Medicine; Visit Provider Internal Medicine
DX: Z00.00 Encounter for general adult medical examination without abnormal findings (principal); I10 Essential (primary) hypertension; F41.1 Generalized anxiety disorder; G43.009 Migraine without aura, not intractable, without status migrainosus; J45.20 Mild intermittent asthma, uncomplicated; R73.01 Impaired fasting glucose; E78.1 Pure hyperglyceridemia; Z71.89 Other specified counseling
CPT/HCPCS: 1123F; 96127; 99396; 99497

== ENCOUNTER 2023-11-17 11:02 | Outpatient (REF) | payer OTHER, MEDICAID, SELFPAY ==
[2023-11-17 13:52] LABS: Alanine Aminotransferase 34 U/L (0-31); Albumin Level 4.1 g/dL (3.5-5.0); Alkaline Phosphatase 72 U/L (39-117); Anion Gap 13 (12-20); Aspartate Amino Transferase 29 U/L (5-31); Bilirubin Total 0.4 mg/dL (0.0-1.0); Blood Urea Nitrogen 16 mg/dL (9-16); Calcium 9.2 mg/dL (8.4-10.2); Carbon Dioxide 25 mmol/L (22-29); Chloride 108 mmol/L (96-108); Cholesterol 160 mg/dL (<200); Estimated Glomerular Filt Rate 53; Glucose Fasting 97 mg/dL (60-99); HDL Cholesterol 36 mg/dL (>40); LDL Cholesterol Calculated 98 mg/dL (<100); Potassium 4.3 mmol/L (3.3-5.1); Sodium 142 mmol/L (135-145); Total Protein 7.4 g/dL (6.5-8.0); Triglycerides 133 mg/dL (<150)
== END 2023-11-17 11:03 | disposition home or self-care (01) ==
LOC: HO.HMGCLDS 11:02
PROVIDERS: PCP Internal Medicine; Visit Provider Internal Medicine
DX: Z00.01 Encounter for general adult medical examination with abnormal findings (principal); E78.1 Pure hyperglyceridemia; R73.01 Impaired fasting glucose; I10 Essential (primary) hypertension; G43.009 Migraine without aura, not intractable, without status migrainosus; H91.93 Unspecified hearing loss, bilateral
CPT/HCPCS: 36415; 80053; 80061

== ENCOUNTER 2024-02-29 08:47 | Outpatient (AMB) | payer OTHER, MEDICAID, SELFPAY ==
--- NOTE | 2024-02-29 09:01 | MHC.PC.OV ---
Vital Signs 02/29/24 09:03 Height 5 ft 6 in Weight 169 lb BMI 27.3 BP 102/62 Blood Pressure Location Lt brachial Position Sitting Pulse 65 Pulse Source Pulse Oximeter Pulse Oximetry (%) 97 Oxygen Delivery Method Room Air Intake Visit Reasons: cataract surgery RT eye Dr. Saravia 03/08 Allergies barium sulfate Adverse Reaction (Unknown, Verified 02/29/24 09:43) nightmares Medication List - Last Reconciled 02/29/24 by Darlene Roca MD acetaminophen 1,000 mg (2 x 500 mg) PO Q6H PRN albuterol sulfate 90 mcg/actuation 2 puffs PO Q4H PRN amlodipine 5 mg PO DAILY 30 days [id number]-qmggnxxqanahp-psyqpjln 250-250-65 mg (Excedrin Migraine) 1 tab PO Q6H PRN doxepin 10mg PO in AM, 25mg PO at bedtime orally 2 times a day; fluoxetine 40 mg (2 x 20 mg) PO QAM meclizine (Dramamine (meclizine)) 25 mg PO BID PRN nabumetone 500 mg PO DAILY PRN propranolol ER 120 mg PO DAILY Tobacco use date assessed: 02/29/24 Dental Screening Dental Screen Date: 02/29/24 Did you have a dental visit in the last 12 months?: No Did you have a dental problem in the last 6 months where you did not have access to dental care?: No Was dental information given to patient?: Patient has dentist HPI cataract surgery RT eye Dr. Saravia 03/08 HPI Details 63-year-old lady with history of breast cancer right status post mastectomy and reconstructive surgery, has prediabetes, mild intermittent asthma, migraine, hearing impaired and has hypertension, here today for preoperative exam for cataract surgery right eye scheduled for 03/08/2024, requested by Dr. Saravia. She has been feeling well, denies any chest pain, no shortness of breath, no cough, no lightheadedness. Continues to smoke cigarettes, has cut down to just 5 cigarettes a day but not ready to quit [facility] [place] Medical History History of ductal carcinoma in situ (DCIS) of breast Recurrent cough Polyarthralgia Hydronephrosis determined by ultrasound Lumbago Hypertriglyceridemia Pruritic intertrigo Impaired fasting glucose Smoker unmotivated to quit Mild intermittent asthma in adult without complication DCIS (ductal carcinoma in situ) Anxiety disorder Hearing impaired HTN (hypertension) Surgical History Hx of colonoscopy History of mammogram History of breast reconstruction History of breast implant History of mastectomy Family History Father No problems noted. Mother Diabetes mellitus HTN (hypertension) Sister Insulin dependent diabetes mellitus HTN (hypertension) Brother Diabetes mellitus Maternal Grandfather No problems noted. Maternal Grandmother No problems noted. Paternal Grandfather No problems noted. Paternal Grandmother No problems noted. Daughter No problems noted. Daughter No problems noted. Social History Housing: House Patient Tobacco Use Status: Current everyday Tobacco user Tobacco use type: Cigarette Cigarettes Per Day: 5 e-Cigarette/Vaping Use: Never Used Current occupational status: unemployed Cognitive needs: No Hearing needs: No Vision needs: Yes Questionnaire PHQ-9 Over the last 2 weeks, how often have you been bothered by any of the following problems? 1. Little interest or pleasure in doing things: not at all 2. Feeling down, depressed, or hopeless: not at all 3. Trouble falling or staying asleep, or sleeping too much: several days 4. Feeling tired or having little energy: several days 5. Poor appetite or overeating: several days 6. Feeling bad about yourself - or that you are a failure or have let yourself or your family down: not at all 7. Trouble concentrating on things, such as reading the newspaper or watching television: not at all 8. Moving or speaking so slowly that other people could have noticed. Or the opposite - being so fidgety or restless that you have been moving around a lot more than usual: not at all 9. Thoughts that you would be better off or of hurting yourself in some way: not at all Total score: 3 Depression Screening Interpretation: Positive Depression Screening Follow-up: Existing condition and In treatment Depression Screening Done: Yes 26936 - PHQ-9 Billing: Yes Source: Developed by Drs. Franki L. KristinDiann holden Kurt Kroenke and colleagues, with an educational mitch from [employer]. Thrive Questionnaire Date Thrive assessed: 02/29/24 I am a: Patient What is your living situation today?: I have a steady place to live Within the past 12 months, did the food you bought not last and you didn't have the money to get more?: Never true Within the past 12 months, did you worry whether your food would run out before you got money to buy more?: Never true Do you have trouble paying for medicines?: No Do you have trouble getting transportation to medical appointments?: No Do you have trouble paying your heating and electricity bill?: No Do you have trouble taking care of your child, family member or friend?: No Do you have trouble with day-to-day activities such as bathing, preparing meals, shopping, managing finances, etc.?: No Are you interested in more education?: No Please select the resources that you would like help with: None Currently or been in a relationship where the following occur: I choose not to answer THRIVE Score: 0 AUDIT C Alcohol Use Questionnaire (AUDIT-C) 1. How often do you have a drink containing alcohol?: Never Total Score: 0 KARENA-7 AMB Questionnaire KARENA-7 Date KARENA - 7 assessed: 02/29/24 Feeling nervous, anxious, or on edge: 1 = Several days Not being able to stop or control worryin = Several days Worrying too much about different things: 1 = Several days Trouble relaxin = Not at all Being so restless that it is hard to sit still: 0 = Not at all Becoming easily annoyed or irritable: 0 = Not at all Feeling afraid as if something awful might happen: 1 = Several days Total KARENA-7 score (0-4 normal; 5-9 mild; 10-14 moderate; 15-21 severe): 4 Source: Developed by Diann Dahl Kurt Kroenke and colleagues, with an educational mitch from [employer]. KARENA-7 Assessment Billing KARENA-7 Assessment Tool: KARENA-7 Assessment 22393 Review of Systems Const Denies fever(s) and Denies headache(s) [facility] Reports blurry vision and Reports requires corrective lenses ENT Denies dizziness, Denies headache(s), Denies nasal congestion, Denies nasal discharge and Denies sore throat Card Denies chest pain, Denies lightheadedness and Denies dyspnea Resp Denies chest congestion, Denies cough, Denies dyspnea and Denies wheezing GI Denies abdominal pain, Denies change in bowel habits and Denies heartburn Reports no additional complaints Musc Reports arthralgias and Reports stiffness Skin/Breast Denies breast swelling, Denies breast pain and Denies breast mass Neuro Denies dizziness and Denies headache(s) Psych Reports no additional complaints Endo Reports no additional complaints [place]/Lymph Reports no additional complaints Aller/Immun Denies seasonal rhinorrhea and Denies wheezing Physical exam (Primary Care) Vital Signs: Last Vital Signs Pulse 65 02/29/24 09:03 BP 102/62 02/29/24 09:03 Pulse Ox 97 02/29/24 09:03 Oxygen Delivery Method Room Air 02/29/24 09:03 BMI result Body Mass Index 27.3 Tobacco/Smoking Status: Tobacco use Status Tobacco use date assessed 02/29/24 02/29/24 09:07 Patient Tobacco Use Status Current everyday Tobacco 02/29/24 09:07 Tobacco use type Cigarette 02/29/24 09:07 e-Cigarette/Vaping Use Never Used 02/29/24 09:07 PHQ-9: PHQ-9 Score PHQ-9: Total score 7 02/29/24 09:07 Depression Screening Interpretation: Positive Depression Screening Follow-up: Existing condition and In treatment Thrive Assessment: Date of Thrive Assessment Date Thrive assessed 02/29/24 02/29/24 09:07 Currently or been in a relationship where the following occur: I choose not to answer Const General: comfortable, no acute distress and alert Orientation/consciousness: patient oriented x3 HENMT Ears: external ears normal, TM's normal bilaterally and EAC's normal General nose exam: Normal external nose present Mouth: oropharynx normal and moist mucous membranes Eyes General: appearance normal, both eyes and all related structures Neck Neck: Yes full ROM, Yes no lymphadenopathy and Yes supple Chest Other: History of mastectomy right breast, status post breast reconstruction surgery, no mass or nipple discharge on left breast Resp Effort & Inspection: normal respiratory effort and able to speak in complete sentences Auscultation: clear to auscultation bilaterally Cardio Rate: regular rate Rhythm: regular rhythm Heart sounds: S1 normal heart sound present and S2 normal heart sound present GI Palpation (GI): Soft to palpation, nontender and no masses Auscultation: normal bowel sounds Other: Done, currently sees Dr. Nguyễn Back/Spine/Pelvis Back: No back tenderness Skin General skin exam: no rashes or lesions noted Neuro General: patient oriented x3, gait normal, tone normal, moves all extremities, Normal light touch and pain sensation and no focal motor deficits Cranial nerves: Yes CN's II-XII intact bilaterally Cognition (Neuro): normal cognition Extrem General: Yes full ROM, Yes no joint enlargement, Yes no clubbing, cyanosis or edema and Yes no calf tenderness Psych Appearance: grossly normal and well kempt Mental Status: mental status grossly normal Speech and movement: Normal speech and movement present Affect: normal affect Attitude: cooperative Thought process: Normal thought process present Thought content: Normal thought content present Results Reviewed Results Reviewed: Name: Lisa Carney Age/Sex: 63/F : 1960 Unit#: [id number] Attend Dr: Darlene Roca MD Re11/17/23 Status: DEP REF Location: [facility] Disch: SPEC : [id number] ANTON: 11/17/23 STATUS: COMP REQ : [id number] RECD: 11/17/23-[address]: Darlene Roca MD COMP: 11/17/23-1352 ENTERED: 11/17/23-[address]: ORDERED: CMP Fast, Lipid Panel Test Result Flag Reference Sodium 142 135-145 mmol/L Potassium 4.3 3.3-5.1 mmol/L CL 108 96-108 mmol/L CO2 25 22-29 mmol/L Gap 13 12-20 BUN 16 9-16 mg/dL Creat 1.06 0.5-1.4 mg/dL EGFR 53 NOTE: For -[place] individuals, multiply the result by 1.210. Chronic Kidney Disease: Estimated GFR < 60 mL/min/1.73m2 Severe Kidney Disease: Estimated GFR < 15 mL/min/1.73m2 FBS 97 60-99 mg/dL CA 9.2 # 8.4-10.2 mg/dL Total Bili 0.4 0.0-1.0 mg/dL AST (GOT) 29 5-31 U/L ALT (GPT) 34 H 0-31 U/L Protein, Total 7.4 6.5-8.0 g/dL Alb 4.1 3.5-5.0 g/dL Triglyceride 133 <150 mg/dL Desirable Triglyceride: less than 150 mg/dL Borderline High Triglyceride 150-199 mg/dL High Triglyceride: 200-499 mg/dL Very High Triglyceride: greater than or equal to 5OO mg/dL Cholesterol 160 <200 mg/dL Desirable Cholesterol: less than 200 mg/dL Borderline High Cholesterol: 200-239 mg/dL High Cholesterol: greater than 239 mg/dL LDL Calculated 98 <100 mg/dL Desirable LDL: less than 100 mg/dL Near Optimal/Above Optimal LDL: 110-129 mg/dL Borderline High LDL: 130-159 mg/dL High LDL: 160-189 mg/dL Very High LDL: greater than or equal to 190 mg/dL HDL 36 L >40 mg/dL Desirable HDL: greater than 40 mg/dL Note: This HDL assay may give artificially low results in patients with liver disease. Alk Phos 72 39-117 U/L Assessment and Plan Assessment & Plan (1) Preoperative examination: Code(s): Z01.818 - Encounter for other preprocedural examination Plan: Pt is a 63 year old lady here for pre-op clearance for cataract surgery on right, requested by Dr. Edmonds . She has no history of coronary artery disease, has mild intermittent asthma , hypertension controlled on current treatment. Preoperative exam is unremarkable, patient with a low cardiac risk index for proposed surgery. (2) Mild intermittent asthma in adult without complication: Code(s): J45.20 - Mild intermittent asthma, uncomplicated Plan: Controlled with using albuterol inhaler only as rescue for episodes of bronchospasm and wheezing, strongly advised to quit smoking, patient not ready to quit (3) Migraine: Code(s): G43.909 - Migraine, unspecified, not intractable, without status migrainosus Qualifiers: Migraine type: without aura Status migrainosus presence: without status migrainosus Intractability: not intractable Qualified Code(s): G43.009 - Migraine without aura, not intractable, without status migrainosus Plan: Takes Excedrin migraine as needed (4) Anxiety disorder: Code(s): F41.9 - Anxiety disorder, unspecified Qualifiers: Anxiety disorder type: generalized anxiety disorder Qualified Code(s): F41.1 - Generalized anxiety disorder Plan: Currently on fluoxetine (5) Hearing impaired: Code(s): H91.90 - Unspecified hearing loss, unspecified ear Qualifiers: Hearing loss type: unspecified Laterality: bilateral Qualified Code(s): H91.93 - Unspecified hearing loss, bilateral (6) HTN (hypertension): Code(s): I10 - Essential (primary) hypertension Qualifiers: Hypertension type: essential hypertension Qualified Code(s): I10 - Essential (primary) hypertension Plan: Blood pressure at goal of less than 130/80. Continue with current medication. Reinforced importance of following a low sodium diet, getting regular exercise, and lowering stress levels. (7) Hypertriglyceridemia: Code(s): E78.1 - Pure hyperglyceridemia Plan: Reinforced importance of following low-cholesterol diet and regular exercise, at least 30 minutes 3 to 4 times a week. Advised patient to make healthy food choices, eat more fruits, vegetables, whole grains, wild caught fish and low-fat dairy. Limit amount of meat and fried or fatty food products, as well as processed foods and fast foods. (8) History of ductal carcinoma in situ (DCIS) of breast: Comment: Right breast status post mastectomy and breast implant Code(s): Z86.000 - Personal history of in-situ neoplasm of breast Plan: Followed by [facility], Coding Level of Care Code Est Pt Level 4 (21014) Complex EM visit Add On G2211 Diagnoses Preoperative examination Z01.818 Mild intermittent asthma in adult without complication J45.20 Migraine without aura and without status migrainosus, not intractable G43.009 Migraine type: without aura Status migrainosus presence: without status migrainosus Intractability: not intractable Generalized anxiety disorder F41.1 Anxiety disorder type: generalized anxiety disorder Bilateral hearing loss, unspecified hearing loss type H91.93 Hearing loss type: unspecified Laterality: bilateral Essential hypertension I10 Hypertension type: essential hypertension Hypertriglyceridemia E78.1 History of ductal carcinoma in situ (DCIS) of breast Z86.000 Additional Codes KARENA-7 Assessment Billing - KARENA-7 Assessment Tool: KARENA-7 Assessment [id number] ([id number])
[2024-02-29 09:03] VITALS: BP 102/62; PULSE 65; O2SAT 97; BMI 27.3
== END 2024-02-29 10:32 | disposition home or self-care (01) ==
PROVIDERS: PCP Internal Medicine; Visit Provider Internal Medicine
DX: J45.20 Mild intermittent asthma, uncomplicated (principal); G43.009 Migraine without aura, not intractable, without status migrainosus; F41.1 Generalized anxiety disorder; Z01.818 Encounter for other preprocedural examination; H91.93 Unspecified hearing loss, bilateral; I10 Essential (primary) hypertension; E78.1 Pure hyperglyceridemia; Z86.000 Personal history of in-situ neoplasm of breast

== ENCOUNTER → 2024-02-29 08:47 | Outpatient (BNVA) | payer OTHER, MEDICAID, SELFPAY | PROVIDERS: PCP Internal Medicine; Visit Provider Internal Medicine | DX: Z01.818 Encounter for other preprocedural examination (principal); J45.20 Mild intermittent asthma, uncomplicated; G43.009 Migraine without aura, not intractable, without status migrainosus; F41.1 Generalized anxiety disorder; H91.93 Unspecified hearing loss, bilateral; I10 Essential (primary) hypertension; E78.1 Pure hyperglyceridemia; F17.200 Nicotine dependence, unspecified, uncomplicated; Z71.6 Tobacco abuse counseling; Z86.000 Personal history of in-situ neoplasm of breast | CPT/HCPCS: 96127; 99212 ==

== ENCOUNTER 2025-03-05 11:01 | Outpatient (REF) | payer OTHER, MEDICAID, SELFPAY ==
--- NOTE | ~2025-03-05 | XR_ITS ---
Examination: Three-view bilateral shoulders. INDICATION: Shoulder pain Prior: None TECHNIQUE: AP, scapular Y, and Grashey views of both shoulders FINDINGS: Right shoulder: There is a large medial osteophyte involving the humeral head. Medium sized glenoid osteophytes are present. There is mild degenerative change with small osteophytes involving the AC joint. There is no AC joint separation or shoulder dislocation. Surgical clips are present in the right axilla. Left shoulder: There is a moderately large medial osteophyte involving the humeral head. Medium sized glenoid osteophytes are present. There is moderate degenerative change with small osteophytes involving the AC joint. There is no AC joint separation or shoulder dislocation. There is faint chondrocalcinosis in the AC joint. XR/XR Shoulder Zev min 2V IMPRESSION: Moderate degenerative changes involving right greater than left shoulder joints and AC joints. 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 Electronically signed by: Steven Glass MD 03/05/2025 01:51 PM EDT
[2025-03-05 16:55] LABS: Hematocrit 50.4 % (37.0-47.0); Hemoglobin 16.6 g/dl (12.0-16.0); Imm Gran Abs Auto 0.03 X10*3/uL (0.00-0.03); Imm Gran Pct Auto 0.3 % (0.0-0.4); Lymphocytes Absolute Auto 4.5 X10*3/uL (1.2-4.9); MANUAL DIFF FLAG SCAN; Mean Corpuscular HGB Conc 32.9 g/dl (31.0-35.0); Mean Corpuscular Hemoglobin 30.5 pg (27.0-33.0); Mean Corpuscular Volume 92.6 fL (80.0-98.0); NRBC Abs Auto 0.000 X10*3/uL (0.0-0.012); NRBC Pct Auto 0.0 /100WBC (0.0-0.2); PLT CLUMP 1; Red Blood Count 5.44 X10*6/uL (4.20-5.50); SCAN SMEAR FLAG 1
[2025-03-05 17:04] LABS: Hemoglobin A1C 151.1038 umol/L
[2025-03-05 17:07] LABS: Alanine Aminotransferase 79 U/L (0-31); Aspartate Amino Transferase 72 U/L (5-31); Cholesterol 208 mg/dL (<200); HDL Cholesterol 39 mg/dL (>40); Triglycerides 301 mg/dL (<150)
[2025-03-05 18:07] LABS: Platelet Count 202 X10*3/uL (160-400); White Blood Count 10.7 X10*3/uL (4.8-10.8)
== END 2025-03-05 11:02 | disposition home or self-care (01) ==
LOC: HO.HMGCX 11:01
PROVIDERS: PCP Internal Medicine; Visit Provider Internal Medicine
DX: Z23 Encounter for immunization (principal); Z00.01 Encounter for general adult medical examination with abnormal findings; Z12.11 Encounter for screening for malignant neoplasm of colon; F41.1 Generalized anxiety disorder; I10 Essential (primary) hypertension; E78.1 Pure hyperglyceridemia; R73.01 Impaired fasting glucose; M25.511 Pain in right shoulder; M25.512 Pain in left shoulder; J45.20 Mild intermittent asthma, uncomplicated; G43.009 Migraine without aura, not intractable, without status migrainosus; F17.210 Nicotine dependence, cigarettes, uncomplicated; Z86.000 Personal history of in-situ neoplasm of breast; Z79.82 Long term (current) use of aspirin; Z79.899 Other long term (current) drug therapy
CPT/HCPCS: 36415; 73030; 80061; 82306; 83036; 84450; 84460; 85025; 90471; 90656; 96127

== ENCOUNTER 2025-03-05 11:01 | Outpatient (AMB) | payer OTHER, MEDICAID, SELFPAY ==
--- NOTE | 2025-03-05 11:42 | A.OFFPC_ITS ---
Vital Signs 03/05/25 12:13 Height 5 ft 6 in Weight 169 lb BMI 27.3 BP 108/70 Blood Pressure Location Lt brachial Position Sitting Pulse 62 Pulse Source Pulse Oximeter Temp 97.8 F Temp Source Oral Pulse Oximetry (%) 97 Intake Visit Reasons: Annual PE Intake Note: Pt is here today for her PE: Last mammogram 02/04/23, colonoscope 12/02/14 Hebrew Cantor Required: No Allergies barium sulfate Adverse Reaction (Unknown, Verified 03/05/25 12:22) nightmares Medication List - Last Reconciled 03/05/25 by Darlene Roca MD acetaminophen 1,000 mg (2 x 500 mg) PO Q6H PRN albuterol sulfate 90 mcg/actuation 2 puffs PO Q4H PRN amlodipine 5 mg PO DAILY 30 days qwcrsgb-faiiqugfisgel-irhggjos 250-250-65 mg (Excedrin Migraine) 1 tab PO Q6H PRN doxepin 10mg PO in AM, 25mg PO at bedtime orally 2 times a day; fluoxetine 40 mg (2 x 20 mg) PO QAM meclizine (Dramamine (meclizine)) 25 mg PO BID PRN nabumetone 500 mg PO DAILY PRN propranolol ER 120 mg PO DAILY Tobacco use date assessed: 03/05/25 Dental Screening Dental Screen Date: 03/05/25 Did you have a dental visit in the last 12 months?: Yes Did you have a dental problem in the last 6 months where you did not have access to dental care?: No Was dental information given to patient?: Patient has dentist HPI Annual PE HPI Details 64 year-old lady with history of breast cancer right status post mastectomy and reconstructive surgery, has prediabetes, mild intermittent asthma, migraine, hearing impaired and has hypertension, here today for 64-year-old lady here today for her physical exam. She has been up-to-date [facility] Medical History History of ductal carcinoma in situ (DCIS) of breast Recurrent cough Polyarthralgia Hydronephrosis determined by ultrasound Lumbago Hypertriglyceridemia Pruritic intertrigo Impaired fasting glucose Smoker unmotivated to quit Mild intermittent asthma in adult without complication DCIS (ductal carcinoma in situ) Anxiety disorder Hearing impaired HTN (hypertension) Surgical History Hx of colonoscopy History of mammogram History of breast reconstruction History of breast implant History of mastectomy Family History Father No problems noted. Mother Diabetes mellitus HTN (hypertension) Sister Insulin dependent diabetes mellitus HTN (hypertension) Brother Diabetes mellitus Maternal Grandfather No problems noted. Maternal Grandmother No problems noted. Paternal Grandfather No problems noted. Paternal Grandmother No problems noted. Daughter No problems noted. Daughter No problems noted. Social History Housing: House Patient Tobacco Use Status: Current everyday Tobacco user Tobacco use type: Cigarette Cigarettes Per Day: 5 e-Cigarette/Vaping Use: Never Used Current occupational status: unemployed Cognitive needs: No Hearing needs: No Vision needs: Yes Questionnaire PHQ-9 Over the last 2 weeks, how often have you been bothered by any of the following problems? 1. Little interest or pleasure in doing things: not at all 2. Feeling down, depressed, or hopeless: not at all 3. Trouble falling or staying asleep, or sleeping too much: not at all 4. Feeling tired or having little energy: several days 5. Poor appetite or overeating: not at all 6. Feeling bad about yourself - or that you are a failure or have let yourself or your family down: several days 7. Trouble concentrating on things, such as reading the newspaper or watching television: not at all 8. Moving or speaking so slowly that other people could have noticed. Or the opposite - being so fidgety or restless that you have been moving around a lot more than usual: not at all 9. Thoughts that you would be better off or of hurting yourself in some way: not at all Total score: 2 Depression Screening Interpretation: Positive (Controlled on fluoxetine, declined therapy) Depression Screening Follow-up: Existing condition and In treatment Depression Screening Done: Yes 94684 - PHQ-9 Billing: Yes Source: Developed by Drs. Franki Foster, Diann Contreras, Olivier Salmeron and colleagues, with an educational mitch from [employer]. Thrive Questionnaire Date Thrive assessed: 02/26/25 I am a: Patient What is your living situation today?: I have a steady place to live Within the past 12 months, did the food you bought not last and you didn't have the money to get more?: Never true Within the past 12 months, did you worry whether your food would run out before you got money to buy more?: Never true Do you have trouble paying for medicines?: No Do you have trouble getting transportation to medical appointments?: No Do you have trouble paying your heating and electricity bill?: No Do you have trouble taking care of your child, family member or friend?: No Do you have trouble with day-to-day activities such as bathing, preparing meals, shopping, managing finances, etc.?: No Are you currently unemployed and looking for a job?: No Are you interested in more education?: No Please select the resources that you would like help with: None Currently or been in a relationship where the following occur: No concerns reported and I choose not to answer THRIVE Score: 0 AUDIT C Alcohol Use Questionnaire (AUDIT-C) 1. How often do you have a drink containing alcohol?: Monthly or less 2. How many drinks containing alcohol do you have on a typical day when you are drinking?: 1 or 2 3. How often do you have six or more drinks on one occasion?: Less than monthly Total Score: 2 Score Reviewed/Action Taken: Yes KARENA-7 AMB Questionnaire KARENA-7 Date KARENA - 7 assessed: 03/05/25 Feeling nervous, anxious, or on edge: 1 = Several days Not being able to stop or control worryin = Not at all Worrying too much about different things: 1 = Several days Trouble relaxin = Several days Being so restless that it is hard to sit still: 1 = Several days Becoming easily annoyed or irritable: 0 = Not at all Feeling afraid as if something awful might happen: 0 = Not at all Total KARENA-7 score (0-4 normal; 5-9 mild; 10-14 moderate; 15-21 severe): 4 Source: Developed by Drs. Franki Foster, Diann Contreras, Olivier Salmeron and colleagues, with an educational mitch from [employer]. KARENA-7 Assessment Billing KARENA-7 Assessment Tool: KARENA-7 Assessment 81734 Physical exam (Primary Care) Vital Signs: Last Vital Signs Temp 97.8 F 03/05/25 12:13 Pulse 62 03/05/25 12:13 BP 108/70 03/05/25 12:13 Pulse Ox 97 03/05/25 12:13 BMI result Body Mass Index 27.3 Tobacco/Smoking Status: Tobacco use Status Tobacco use date assessed 03/05/25 03/05/25 12:15 Patient Tobacco Use Status Current everyday Tobacco 03/05/25 11:45 Tobacco use type Cigarette 03/05/25 11:45 e-Cigarette/Vaping Use Never Used 03/05/25 11:45 PHQ-9: PHQ-9 Score PHQ-9: Total score 2 03/05/25 12:35 Depression Screening Interpretation: Positive (Controlled on fluoxetine, declined therapy) Depression Screening Follow-up: Existing condition and In treatment Thrive Assessment: Date of Thrive Assessment Date Thrive assessed 02/26/25 03/05/25 11:45 Currently or been in a relationship where the following occur: No concerns reported and I choose not to answer Office Procedures Flu Questionnaire Does the patient have a severe egg allergy?: No Does the patient have severe life threatening allergies?: No Does the patient have a fever or illness today?: No Has the patient ever had Guillain-[place] Syndrome?: No Has the patient ever had any past reaction to a flu shot?: No Immunizations Fluarix [id number] (PF) 45 mcg (15 mcg x 3)/0.5 mL IM syringe Performing Provider: Darlene Roca MD Performing Location: [facility] [place] [facility] Administered by: Jai Mcneal CMA on 03/05/25 12:37 Dose Route Admin Location Dispensed Lot Number Expiration Date [facility][NOTE 3] Customer Support Executive 0.5 mL IM Left Deltoid 0.5 mL [id number] 12/10/25 57488-895-86 VineINE VIS Given Date VIS Provided VIS Publication Date 03/05/25 Single Vaccine 24 Eligibility Eligibility Date Funding Source Not [facility] Eligible 03/05/25 Private Coding Level of Care Code Est Pt Prev Care 40-64y(55777) Diagnoses Colon cancer screening Z12.11 Essential hypertension I10 Hypertension type: essential hypertension Generalized anxiety disorder F41.1 Anxiety disorder type: generalized anxiety disorder Impaired fasting glucose R73.01 Hypertriglyceridemia E78.1 History of ductal carcinoma in situ (DCIS) of breast Z86.000 Bilateral shoulder pain M25.511; M25.512 Additional Codes KARENA-7 Assessment Billing - KARENA-7 Assessment Tool: KARENA-7 Assessment 50574 ([id number]) PHQ-9 - 99058 - PHQ-9 Billing: Yes ([id number]) Assessment & Plan Assessment & Plan (1) Colon cancer screening: Code(s): Z12.11 - Encounter for screening for malignant neoplasm of colon Category: Medical (2) HTN (hypertension): Code(s): I10 - Essential (primary) hypertension Category: Medical Qualifiers: Hypertension type: essential hypertension Qualified Code(s): I10 - Esse ntial (primary) hypertension (3) Anxiety disorder: Code(s): F41.9 - Anxiety disorder, unspecified Category: Medical Qualifiers: Anxiety disorder type: generalized anxiety disorder Qualified Code(s): F41.1 - Generalized anxiety disorder (4) Impaired fasting glucose: Code(s): R73.01 - Impaired fasting glucose Category: Medical (5) Hypertriglyceridemia: Code(s): E78.1 - Pure hyperglyceridemia Category: Medical (6) History of ductal carcinoma in situ (DCIS) of breast: Comment: Right breast status post mastectomy and breast implant Code(s): Z86.000 - Personal history of in-situ neoplasm of breast Category: Medical (7) Bilateral shoulder pain: Code(s): M25.511 - Pain in right shoulder; M25.512 - Pain in left shoulder Category: Medical Orders: Orders Alanine Aminotransferase Today E78.1 - Pure hyperglyceridemia, F41.1 - Generalized anxiety disorder, I10 - Essential (primary) hypertension, M25.511 - Pain in right shoulder, M25.512 - Pain in left shoulder, R73.01 - Impaired fasting glucose, Z86.000 - Personal history of in-situ neoplasm of breast Aspartate Amino Transferase Today E78.1 - Pure hyperglyceridemia, F41.1 - Generalized anxiety disorder, I10 - Essential (primary) hypertension, M25.511 - Pain in right shoulder, M25.512 - Pain in left shoulder, R73.01 - Impaired f asting glucose, Z86.000 - Personal history of in-situ neoplasm of breast Influenza [id number] Immunization Today Z23 - Encounter for immunization Complete Blood Count Auto Diff Today E78.1 - Pure hyperglyceridemia, F41.1 - Generalized anxiety disorder, I10 - Essential (primary) hypertension, M25.511 - Pain in right shoulder, M25.512 - Pain in left shoulder, R73.01 - Impaired fasting glucose, Z86.000 - Personal history of in-situ neoplasm of breast Lipid Panel Today E78.1 - Pure hyperglyceridemia, F41.1 - Generalized anxiety disorder, I10 - Essential (primary) hypertension, M25.511 - Pain in right shoulder, M25.512 - Pain in left shoulder, R73.01 - Impaired fasting glucose, Z86.000 - Personal history of in-situ neoplasm of breast Hemoglobin A1c Today E78.1 - Pure hyperglyceridemia, F41.1 - Generalized anxiety disorder, I10 - Essential (primary) hypertension, M25.511 - Pain in right shoulder, M25.512 - Pain in left shoulder, R73.01 - Impaired fasting glucose, Z86.000 - Personal history of in-situ neoplasm of breast Vitamin D 25-OH Total Today E78.1 - Pure hyperglyceridemia, F41.1 - Generalized anxiety disorder, I10 - Essential (primary) hypertension, M25.511 - Pain in right shoulder, M25.512 - Pain in left shoulder, R73.01 - Impaired fasting glucose, Z86.000 - Personal history of in-situ neoplasm of breast XR Shoulder Zev min 2V Today M25.511 - Pain in right shoulder, M25.512 - Pain in left shoulder PT Evaluation and Treatment Today M25.511 - Pain in right shoulder, M25.512 - Pain in left shoulder Referrals Gastroenterology Referral Z12.11 - Encounter for screening for malignant neoplasm of colon Medications: New tramadol 50 mg PO DAILY PRN 7 tabs 0RF Severe pain shoulder Refilled albuterol sulfate 90 mcg/actuation 2 puffs PO Q4H PRN 8.5 grams 3RF bronchospasm fluoxetine 40 mg (2 x 20 mg) PO QAM 180 caps 4RF F41.1 - Generalized anxiety disorder propranolol ER 120 mg PO DAILY 90 caps 3RF G43.009 - Migraine without aura, not intractable, without status migrainosus, I10 - Essential (primary) hypertension amlodipine 5 mg PO DAILY 90 tabs 4RF 30 days I10 - Essential (primary) hypertension Discontinued nabumetone Discontinued Reason: Patient Refused 500 mg PO DAILY PRN 30 tabs 1RF joint pain
[2025-03-05 12:13] VITALS: BP 108/70; PULSE 62; TEMP 36.6; O2SAT 97; BMI 27.3
--- OUTSIDE RECORDS SUMMARY | 2025-03-05 13:39 | XMS_ITS | Clinical Summary ---
Author Organization [facility] Address [address] [place] [address] Care Team Providers Care Pbx Repairer Name Role Phone Darlene Roca MD Primary Care Provider Encounters Date Type Department Care Team Description 02/07/2025 12:37 PM EDT - 02/07/2025 11:59 PM EDT [facility] [address] [id number] Encounter for screening mammogram for malignant neoplasm of breast Discharge Disposition: Home or Self Care from Last 3 Months Surgical History Surgery Date Site/Laterality Comments BREAST RECONSTRUCTION PROCEDURE: BREAST RECONSTRUCTION; COMMENT: multiple CHOLECYSTECTOMY PROCEDURE: HISTORICAL CHOLECYSTECTOMY MASTECTOMY 02/2010 Right PROCEDURE: HISTORICAL MASTECTOMY SECTION PROCEDURE: HISTORICAL DELIVERY; COMMENT: x1 NV BREAST REDUCTION Medical History Medical History Date Comments Anxiety 05/11/2019 DX:Anxiety Asthma, mild intermittent 05/11/2019 DX:Ast hma, mild intermittent Breast reconstruction deformity 05/02/2019 DX:Breast reconstruction deformity Capsular contracture of breast implant 9 DX:Capsular contracture of breast implant Decreased hearing 05/11/2019 DX:Decreased h earing Depression 05/11/2019 DX:Depression History of right breast cancer 05/02/2019 D X:History of right breast cancer; COMMENT: DCIS: Multiple surgical interventions for reconstuction History of viral hepatitis, type A 05/11/2019 DX:History of viral hepatitis, type A Hypertension 05/11/2019 DX:Hypertension Hypertriglyceridemia 05/11/2019 DX:Hypertri glyceridemia Migraine headache 05/11/2019 DX:Migraine he adache Nicotine abuse 05/02/2019 DX:Nicotine abus e Nonalcoholic steatohepatitis (BALDERRAMA) 05/11/2019 DX:Nonalcoholic steatohepatitis (BALDERRAMA) Renal cyst, left 05/11/2019 DX:Renal cyst, left S/P TRAM (transverse rectus abdominis muscle) flap breast reconstruction 05/02/2019 DX:S/P TRAM (transv erse rectus abdominis muscle) flap breast reconstruction Breast cancer (CMS/HCC V24, CMS/HCC V28) Family History Medical History Relation Name Comments Diabetes Brother ? Other: Other Father unknown Other: Other Maternal Grandmother age 94 Diabetes Mother age 69 HTN , pedestrian vs MVA Diabetes Sister HTN Relation Name Status Comments Brother Father Maternal Grandmother Mother Sister Social History Tobacco Use Types Packs/Day Years Used Date Smoking Tobacco: Every Day Smokeless Tobacco: Current Alcohol Use Standard Drinks/Week Comments No 0 (1 standard drink = 0.6 oz pur e alcohol) Comments No Sex and Gender Information Value Date Recorded Sex Assigned at Not on file Legal Sex Female 11:32 PM EDT Gender Identity Not on file Sexual Orientation Not on file Obstetrics History Para Term AB IAB SAB Ectopic Multiple Livin g Live Births 2 Last Filed Vital Signs Vital Sign Reading Time Taken Comments Blood Pressure - - Pulse - - Temperature - - Respiratory Rate - - Oxygen Saturation - - Inhaled Oxygen Concentration - - Weight 65.8 kg (145 lb) 02/07/2025 12:54 PM EDT Height 170.2 cm (5' 7 ) 02/07/2025 12:54 PM EDT Body Mass Index 22.71 02/07/2025 12:54 PM EDT Plan of Treatment Upcoming Encounters Date Type Department Care Team (Late st Contact Info) Description 02/07/2026 1:00 PM EDT [facility]ointment [facility] at [address] [phone] Health Maintenance Due Date Last Done Comments Cervical Cancer Screening: Pap Smear 1982 Hepatitis A Vaccines (2 of 2 - Risk 2-dose series) 01/02/1992 07/04/1991 Pneumococcal Vaccine: 50+ Years (2 of 2 - PCV) 08/22/2015 08/21/2014 Hepatitis B Vaccines (1 of 3 - Risk 3-dose series) 2021 RSV Immunization Adult Patients (1 - Risk 60-74 years 1-dose series) 2021 Cholesterol Screening (Lipid Panel) 02/13/2022 Colorectal Cancer Screening: Colonoscopy 02/13/2022 HIV Screening 02/13/2022 Hepatitis C Screening 02/13/2022 Social Influencers of Health Screening 02/13/2022 Hypertension/CHF/CAD Annual BMP Blood Test 03/25/2024 Depression Screening 06/13/2024 COVID-19 Vaccine ( season) 2025 11/16/2022, 05/09/2021, 11/06/2020, Additional history exists Influenza Vaccine (#1) 2025 , 2023, 04/15/2022, Additional history exists Breast Cancer Screening 02/07/2027 02/07/2025 DTaP,Tdap,and Td Vaccines (2 - Td or Tdap) 12/28/2027 12/27/2017 Zoster Vaccines Completed 01/22/2023, 11/16/2022 HIB Vaccines Aged Out No longer eligi ble based on patient's age to complete this topic HPV Vaccines Aged Out No longer eligi ble based on patient's age to complete this topic IPV Vaccines Aged Out No longer eligi ble based on patient's age to complete this topic MMR Vaccines Aged Out No longer eligi ble based on patient's age to complete this topic Meningococcal ACWY Vaccine Aged Out N o longer eligible based on patient's age to complete this topic Meningococcal B Vaccine Aged Out No l onger eligible based on patient's age to complete this topic RSV Immunization Patients Under 20 months Aged Out No longer eligible based on patient's age to complete this topic Varicella Vaccines Aged Out No longer eligible based on patient's age to complete this topic Procedures Procedure Name Priority Date/Time Associated Diagnosis Comments MG MAMMO DIGITAL SCREENING W IHSAN LEFT Routine 02/07/2025 1:01 PM EDT Encounter for screening mammogram for malignant neoplasm of breast from Last 3 Months Results * MG Mammo Digital Screening w Ihsan Left (02/07/2025 1:01 PM EDT) Anatomical Region Laterality Modality Breast Left Mammography 02/07/2025 1:34 PM EDT Impressions 02/07/2025 2:14 PM EDT No mammographic evidence of malignancy. No suspicious interval change. A negative mammogram in the presence of a clinically suspicious palpable abnormality does not preclude the possibility of malignancy or alter the indications for biopsy. ASSESSMENT: BI-RADS 2: BENIGN RECOMMENDATION(S): 1: Routine screening mammogram LEFT in 1 year. [facility] [address], [address] -------- FINAL REPORT -------- Dictated By: Prosper Arroyo Dictated Date: 02/07/2025 13:34 ET Assigned Physician: Prosper Arroyo Reviewed and Electronically Signed By: Prosper Arroyo Signed Date: 02/07/2025 14:14 ET Workstation ID: [id number] Transcribed By: Self Edit Transcribed Date: 02/07/2025 13:34 ET Narrative 02/07/2025 2:14 PM EDT EXAM: SCREENING MAMMOGRAPHY, UNILATERAL LEFT HISTORY: SCREENING. Personal history of right breast cancer. Right mastectomy 2009. Prior breast reduction surgery. COMPARISON: 02/07/24, 02/04/23, 02/03/22, 02/03/21 TECHNIQUE: Synthesized views of the left breast in the CC and MLO projections. Tomosynthesis of the left breast in the CC and MLO projections. ADDITIONAL IMAGING: None Computer-aided detection was employed with the [employer] AI 3-D. TISSUE DENSITY: There are scattered areas of fibroglandular density. (BI-RADS category B) FINDINGS: LEFT BREAST: No suspicious mass. No suspicious calcification. No change in the breast architecture. No additional suspicious left breast findings Procedure Note Prosper Arroyo MD - 02/07/2025 EXAM: SCREENING MAMMOGRAPHY, UNILATERAL LEFT HISTORY: SCREENING. Personal history of right breast cancer. Rightmastectomy 2009. Prior breast reduction surgery. COMPARISON: 02/07/24, 02/04/23, 02/03/22, 02/03/21 TECHNIQUE: Synthesized views of the left breast in the CC and MLOprojections. Tomosynthesis of the left breast in the CC and MLOprojections. ADDITIONAL IMAGING: None Computer-aided detection was employed with the [employer] AI 3-D. TISSUE DENSITY: There are scattered areas of fibroglandular density.(BI-RADS category B) FINDINGS: LEFT BREAST: No suspicious mass. No suspicious calcification. No change in the breastarchitecture. No additional suspicious left breast findings IMPRESSION: No mammographic evidence of malignancy. No suspicious interval change. A negative mammogram in the presence of a clinically suspicious palpableabnormality does not preclude the possibility of malignancy or alter theindications for biopsy. ASSESSMENT: BI-RADS 2: BENIGN RECOMMENDATION(S): 1: Routine screening mammogram LEFT in 1 year. [facility] [address] [place], [address] -------- FINAL REPORT -------- Dictated By: Prosper Arroyo Dictated Date: 02/07/2025 13:34 ET Assigned Physician: Prosper Arroyo Reviewed and Electronically Signed By: Prosper Arroyo Signed Date: 02/07/2025 14:14 ET Workstation ID: [id number] Transcribed By: Self Edit Transcribed Date: 02/07/2025 13:34 ET us Darlene Roca MD IMG BI PROCEDURES Final Res ult from Last 3 Months Insurance * Guarantor: Lisa Carney Account Type Relation to Patient Date of Phone Billing Address Personal/Family Self 1960 [address] [place] [address] MEDICAID - [place] [facility] Care Teams Pbx Repairer Relationship Specialty Start Date End Date Darlene Roca MD [address] [place] [address] PCP - General Internal Medicine 02/07/25
== END 2025-03-05 13:05 | disposition home or self-care (01) ==
LOC: HO.HMCC 11:01
PROVIDERS: PCP Internal Medicine; Visit Provider Internal Medicine
DX: Z23 Encounter for immunization (principal)

== ENCOUNTER → 2025-03-05 13:11 | Outpatient (BNV) | payer OTHER, MEDICAID, SELFPAY | PROVIDERS: PCP Internal Medicine; Visit Provider Radiology Diagnostic Radiology | DX: M11.211 Other chondrocalcinosis, right shoulder (principal) | CPT/HCPCS: 73030 ==